=== PATIENT | female | born 1970 | race Caucasian/White ===

== ENCOUNTER 2019-08-06 15:47 | Outpatient (CLI) | payer SELFPAY ==
--- NOTE | 2020-04-15 | USCV_ITS ---
Yessica Salcedo Age: 49 Gender: F : 1970 Exam Date: 04/15/2020 13:03 Ordering Phys: Jeremy Pizano MD ([email or web address]) Technologist: Mario Campos Exam Location: [facility] [place] Indication: HISTORY: Lower extremity swelling. PROCEDURES: Venous duplex imaging was performed in only the right lower extremity. The following venous structures were evaluated: common femoral vein, profunda vein, proximal portion of the greater saphenous vein, superficial femoral vein, and the popliteal vein. In addition, the posterior tibial and peroneal trunk were evaluated. Serial compression, augmentation maneuvers, and spectral Doppler flow evaluation were performed. CONCLUSIONS No evidence of DVT in the above-mentioned identifiable veins. Dr. Yoana Godfrey MD (Electronically Signed) Final Date: 15 April 2020 13:13 S
--- NOTE | 2020-04-15 | USCV_ITS ---
Yessica Salcedo Age: 49 Gender: F : 1970 Exam Date: 04/15/2020 13:05 Ordering Phys: Jeremy Pizano MD ([email or web address]) Technologist: Mario Campos Exam Location: [facility] [place] Indication: Risk Factors: Previous Vascular Surgery: Right Brachial BP: / Left Brachial BP: / Right Left Velocity (cm/s) Spectral Plaque Velocity (cm/s) Spectral Plaque Syst/Diast Broadening Syst/Diast Broadening 105.80/52.90 Prox CCA / 77.20/ 36.40 Mid CCA / 97.00/ 55.10 Distal CCA / 88.20/ 28.70 Prox ICA / 84.90/ 43.55 Mid ICA / 125.15/62.30 Distal ICA / 97.00 ECA 1.02 ICA/CCA Vertebral 68.40/ 39.70 cm/s / cm/s Subclavian 65.10 CONCLUSIONS No prior study for comparison. Right ICA stenosis < 50%. Left ICA stenosis 50-69%. Dr. Yoana Godfrey MD (Electronically Signed) Final Date: 15 April 2020 13:13 S
== END 2019-08-06 15:48 | disposition home or self-care (01) ==
LOC: OPMS 15:49
PROVIDERS: Visit Provider Hospitalist
DX: Z76.89 Persons encountering health services in other specified circumstances (principal)

== ENCOUNTER 2019-08-10 08:18 | Outpatient (CLI) | payer SELFPAY ==
--- NOTE | 2019-08-09 | CT_ITS ---
WS: [id number] CT LUNG CANCER SCREENING DLP: 256 CLINICAL INFORMATION SCREENING VISIT: Baseline COMPARISON: None available. FINDINGS Diagnostic quality: Satisfactory Comments: None. Lung Nodules: None. Lungs: Mass seen in the right lower lobe Heart: Normal size Other findings: None. LUNG-RADS: 2-Benign Appearance or Behavior OTHER FINDINGS (S MODIFIER): Mass right lower lobe
--- NOTE | 2019-08-09 | CT_ITS ---
WS: [id number] CT LUNG CANCER SCREENING DLP: 250 CLINICAL INFORMATION SCREENING VISIT: Baseline COMPARISON: None available. FINDINGS Diagnostic quality: Satisfactory Comments: None. Lung Nodules: None. Lungs: No abnormality. Heart: Normal size. Other findings: None. LUNG-RADS: 1-Negative OTHER FINDINGS (S MODIFIER): None.
== END 2019-08-10 08:19 | disposition home or self-care (01) ==
LOC: RAD 08:21
PROVIDERS: Visit Provider Hospitalist
DX: Z12.2 Encounter for screening for malignant neoplasm of respiratory organs (principal)
CPT/HCPCS: 76536; 76700; 76770; 76775; 76805; 76815; 76816; 76817; 76819; 76820; 76830; 76856; 76857; 76870; G0297

== ENCOUNTER → 2020-07-31 08:40 | Inpatient (IN) | payer MEDICAID, SELFPAY ==
--- NOTE | 2020-08-06 15:17 | P.PN_ITS ---
NPU Therapy Progress Note Therapy Progress Note: Date: 08/06/20 Time In: 12:15 Time Out: 12:30 Symptoms Reported: Testing Mood: Testing asldk;fja;lskjf;alskdjf;alskjdfl;ajkdf;laksjdfl;akjsd;flkjas;l dfkj;alksdjfl;akdsjf;lakjfdl;ajkfdl;kjadl;fkja;ldkfj;alksjdf;lakjsdfl;alex;lkj ;lakjsd;kfja;ls fa;kdjfl;akjdf ja;ldkfjlakjdf as;ldkfjal;ksdf as;dlkfj;alksdfja sldfj;lalskdjf Progress Note: TEst Intervention: Test Reported Goals Before Discharge: test
--- NOTE | 2020-08-06 15:20 | PM.NPTHER ---
NPU Therapy Progress Note Therapy Progress Note Date: 08/06/20 Time In: 12:00 Time Out: 12:15 Symptoms Reported: Testing Mood: Testing Progress Note: Testing Intervention: Testing Reported Goals Before Discharge: Testing
--- NOTE | 2021-08-11 | XR_ITS ---
CHEST XRAY FINDINGS: IMPRESSION: MTDD
== END | disposition home or self-care (01) | DRG 192 ==
LOC: MS 2A 08-07 08:40
PROVIDERS: Admitting Provider Hospitalist; PCP Family Medicine; Visit Provider Hospitalist
DX: J44.9 Chronic obstructive pulmonary disease, unspecified (principal)

== ENCOUNTER → 2021-03-02 15:04 | Outpatient (BNVA) | payer MEDICARE, SELFPAY ==
--- NOTE | 2021-04-02 11:27 | PM.HP ---
Providers/Chief Complaint Primary Care Provider: Sandhya Oneil DO Chief Complaint: AMB.HEADLI History of Present Illness Yessica Salcedo is a 50 year old female who presents to the hospital for college working Medications/Allergies Home Medications Medication Instructions Recorded Confirmed Last Taken Type rosuvastatin [Crestor] 5 mg PO DAILY #1 tab 05/26/20 01/06/21 Unknown Rx fluticasone 250 mcg-salmeterol 50 1 inh INHALATION Q12H #60 ea 05/29/20 01/06/21 Unknown Rx mcg/dose blistr powdr for inhalation gabapentin 800 mg tablet 800 mg PO DAILY #1 tab 06/04/20 01/06/21 Unknown Rx multivitamin 1 tab PO DAILY #1 tab 06/04/20 01/06/21 Unknown Rx tramadol 50 mg tablet 50 mg PO Q8H PRN #30 tab 06/17/20 Unknown Rx hydrocodone bitartrate 10 mg 10 mg PO Q12H PRN 6 Days #12 each 10/20/20 01/06/21 Unknown Rx capsule, oral only, extended rel 12 hr hydrocodone 7.5 mg-acetaminophen 1 tab PO BID PRN 6 Days #10 tab 11/17/20 01/06/21 Unknown Rx 300 mg tablet hydrocodone 5 mg-acetaminophen 325 1 tab PO Q4H PRN 10 Days #30 tab 12/01/20 01/06/21 Unknown Rx mg tablet hydrocodone 5 mg-acetaminophen 325 1 tab PO DAILY 7 Days #1 tab 02/24/21 Unknown Rx mg tablet hydrocodone 5 mg-acetaminophen 325 1 tab PO DAILY 7 Days #7 tab 02/24/21 Unknown Rx mg tablet Allergies Allergy/AdvReac Type Severity Reaction Status Date / Time No Known Allergies Allergy Verified 03/04/21 15:55 PFSH Acute PFSH: Medical History Asthma Family History Father Family history of premature coronary artery disease Social History service: Yes Coding Level of Care Code Acute Developer Automatic for Felicita Roldan
== END ==
PROVIDERS: PCP Family Medicine; Visit Provider Family Medicine
DX: I26.99 Other pulmonary embolism without acute cor pulmonale (principal)
CPT/HCPCS: 85610

== ENCOUNTER → 2021-11-12 16:06 | Outpatient (BNVA) | payer MEDICARE, MEDICAID, SELFPAY | DX: I48.91 Unspecified atrial fibrillation (principal) | CPT/HCPCS: 87400 ==

== ENCOUNTER → 2021-11-17 13:48 | Outpatient (BNVA) | payer MEDICARE, MEDICAID, SELFPAY | PROVIDERS: Visit Provider Urology | DX: Z53.8 Procedure and treatment not carried out for other reasons (principal) | CPT/HCPCS: 81003 ==

== ENCOUNTER 2021-11-19 15:49 | Oncology outpatient (recurring) (ONCR) | payer MEDICARE, MEDICAID, SELFPAY ==
--- NOTE | 2021-12-09 12:05 | PM.HP ---
Providers/Chief Complaint Primary Care Provider: [facility] Chief Complaint: testing only History of Present Illness Yessica Salcedo is a 51 year old female Review of Systems General: Reports: 10 or more systems reviewed and unremarkable except in HPI and below and ROS unobtainable due to endotracheal tube Medications/Allergies Home Medications Medication Instructions Recorded Confirmed Last Taken Type rosuvastatin 5 mg tablet (Crestor) 5 mg PO DAILY #1 tab 05/26/20 11/25/21 Unknown Rx fluticasone 250 mcg-salmeterol 50 1 inh INHALATION Q12H #60 ea 05/29/20 11/25/21 Unknown Rx mcg/dose blistr powdr for inhalation (Advair Diskus) gabapentin 800 mg tablet 800 mg PO DAILY #1 tab 06/04/20 11/25/21 Unknown Rx multivitamin 1 tab PO DAILY #1 tab 06/04/20 11/25/21 Unknown Rx tramadol 50 mg tablet 50 mg PO Q8H PRN #30 tab 06/17/20 11/25/21 Unknown Rx hydrocodone 7.5 mg-acetaminophen 1 tab PO BID PRN 6 Days #10 tab 11/17/20 11/25/21 Unknown Rx 300 mg tablet hydrocodone 5 mg-acetaminophen 325 1 tab PO Q4H PRN 10 Days #30 tab 12/01/20 11/25/21 Unknown Rx mg tablet hydrocodone 5 mg-acetaminophen 325 1 tab PO DAILY 7 Days #1 tab 02/24/21 11/25/21 Unknown Rx mg tablet hydrocodone 5 mg-acetaminophen 325 1 tab PO DAILY 7 Days #7 tab 02/24/21 11/25/21 Unknown Rx mg tablet lisinopril 5 mg tablet 5 mg PO DAILY #1 tab 05/21/21 11/25/21 Unknown Rx lisinopril 5 mg tablet 5 mg PO DAILY #7 tab 05/21/21 11/25/21 Unknown Rx clonazepam 0.5 mg tablet 0.25 mg PO DAILY #1 tab 07/14/21 11/25/21 Unknown Rx ibuprofen 200 mg capsule 400 mg PO Q8H #14 cap 08/31/21 11/25/21 Unknown Rx hydrocodone bitartrate 10 mg 10 mg PO Q12H PRN 6 Days #12 each 10/22/21 11/25/21 Unknown Rx capsule, oral only, extended rel 12 hr oxycodone 5 mg/5 mL oral solution 5 mg (5 mL) PO .COMPLEX PRN 14 11/16/21 11/25/21 Unknown Rx Days #5 ml oxycodone 5 mg/5 mL oral solution 5 mg (5 mL) PO Q6H PRN 17 Days #5 11/16/21 11/25/21 Unknown Rx ml lisinopril 10 mg tablet 10 mg PO DAILY #30 tab 12/08/21 12/08/21 Unknown Rx Allergies Allergy/AdvReac Type Severity Reaction Status Date / Time No Known Allergies Allergy Verified 12/08/21 15:44 PFSH Acute PFSH: Medical History Asthma Family History (Updated 12/08/21 @ 16:11 by Juliet Whitten LPN) Father Family history of premature coronary artery disease Father No problems noted. Social History (Updated 07/16/21 @ 23:27 by Barbie Billings MD) Last alcohol use date: 07/16/21 Last alcohol use time: 23:26 Other details last alcohol use: testing Last substance use date: 07/14/21 Last substance use time: 08:00 Other details last substance use: help service: Yes Attestations Medical Necessity Statement*: ddd Coding Level of Care Code Acute Ladle Car Operator for Felicita Roldan
== END 2021-12-15 23:59 | disposition home or self-care (01) ==
PROVIDERS: Visit Provider Internal Medicine Hematology & Oncology
DX: Z53.9 Procedure and treatment not carried out, unspecified reason (principal)

== ENCOUNTER 2022-02-04 12:54 | Oncology outpatient (recurring) (ONCR) | payer MEDICARE, MEDICAID, SELFPAY ==
--- NOTE | 2022-01-20 11:31 | PM.DCS ---
Discharge Providers Date of Discharge: January 20, 2022 Attending Provider at Discharge: Christie Horton MD Primary Care Provider: [facility] Diagnoses at Discharge Discharge Diagnosis (1) A-fib: Status: Acute Reason for Visit Reason for Visit: testing only Discharge Data Studies Completed and Pending Laboratory Results Urine Color Cancelled 01/12/22 12:02 Urine Appearance Cancelled 01/12/22 12:02 Urine pH Cancelled 01/12/22 12:02 Ur Specific [place] Cancelled 01/12/22 12:02 Urine Protein Cancelled 01/12/22 12:02 Urine Glucose (UA) Cancelled 01/12/22 12:02 Urine Ketones Cancelled 01/12/22 12:02 Urine Blood Cancelled 01/12/22 12:02 Urine Nitrate Cancelled 01/12/22 12:02 Urine Bilirubin Cancelled 01/12/22 12:02 Prot Sulfosalicylic Acd Cancelled 01/12/22 12:02 Urine Urobilinogen Cancelled 01/12/22 12:02 Ur Leukocyte Esterase Cancelled 01/12/22 12:02 Urine RBC Cancelled 01/12/22 12:02 Urine WBC Cancelled 01/12/22 12:02 Ur Squamous Epith Cells Cancelled 01/12/22 12:02 Ur Transition Epith Cell Cancelled 01/12/22 12:02 Ur Renal Epithelial Cell Cancelled 01/12/22 12:02 Calcium Oxalate Crystal Cancelled 01/12/22 12:02 Uric Acid Crystals Cancelled 01/12/22 12:02 Triple Phos Crystals Cancelled 01/12/22 12:02 Other Crystals Cancelled 01/12/22 12:02 Amorphous Sediment Cancelled 01/12/22 12:02 Urine Bacteria Cancelled 01/12/22 12:02 Hyaline Casts Cancelled 01/12/22 12:02 Fine Granular Casts Cancelled 01/12/22 12:02 Coarse Granular Casts Cancelled 01/12/22 12:02 RBC Casts Cancelled 01/12/22 12:02 Other Casts Cancelled 01/12/22 12:02 Urine Mucus Cancelled 01/12/22 12:02 Urine Trichomonas Cancelled 01/12/22 12:02 Urine Yeast Cancelled 01/12/22 12:02 Urine Sperm Cancelled 01/12/22 12:02 Ur Oval Fat Bodies Cancelled 01/12/22 12:02 Discharge Plan Discharge Prescriptions: No Action lisinopril 5 mg tablet 5 mg PO DAILY Qty: 1 0RF lisinopril 10 mg tablet 10 mg PO DAILY Qty: 30 0RF fluticasone propion-salmeterol [Advair Diskus] 250-50 mcg/dose blister with device 1 inh INHALATION Q12H Qty: 60 0RF gabapentin 800 mg tablet 800 mg PO DAILY Qty: 1 0RF multivitamin Tablet 1 tab PO DAILY Qty: 1 0RF tramadol 50 mg tablet 50 mg PO Q8H PRN (Reason: pain) Qty: 30 0RF Rx Instructions: testing Rx do not fill hydrocodone-acetaminophen 7.5-300 mg tablet 1 tab PO BID PRN (Reason: pain) 6 Days Qty: 10 0RF Rx Instructions: Please do no fill this is a test script hydrocodone-acetaminophen 5-325 mg tablet 1 tab PO Q4H PRN (Reason: pain) 10 Days Qty: 30 0RF Rx Instructions: do not fill this medication is a test hydrocodone-acetaminophen 5-325 mg tablet 1 tab PO DAILY 7 Days Qty: 1 0RF Rx Instructions: test script hydrocodone-acetaminophen 5-325 mg tablet 1 tab PO DAILY 7 Days Qty: 7 0RF Rx Instructions: test patient lisinopril 5 mg tablet 5 mg PO DAILY Qty: 7 0RF ibuprofen 200 mg capsule 400 mg PO Q8H Qty: 14 0RF Rx Instructions: Take with food oxycodone 5 mg/5 mL solution 5 mg PO Q6H PRN (Reason: pain) 17 Days Qty: 5 0RF Rx Instructions: Test patient ... do not fill oxycodone 5 mg/5 mL solution 5 mg PO .COMPLEX PRN (Reason: pain) 14 Days Qty: 5 0RF Rx Instructions: 5 mg PO Q4-6 hrs PRN; clonazepam 0.5 mg tablet 0.25 mg PO DAILY Qty: 1 0RF Rx Instructions: test script do not fill Crestor 5 mg tablet 5 mg PO DAILY Qty: 1 0RF hydrocodone bitartrate 10 mg capsule, oral only, ER 12hr 10 mg PO Q12H PRN (Reason: pain) 6 Days Qty: 12 0RF Rx Instructions: DO NOT FILL THIS IS A TEST SCRIPTS Coding Level of Care Code Acute Chg FW DC note Diagnoses A-fib I48.91
--- NOTE | 2022-01-20 15:56 | PM.HP ---
Providers/Chief Complaint Primary Care Provider: [facility] Chief Complaint: testing only History of Present Illness Yessica Salcedo is a 51 year old female Medications/Allergies Home Medications Medication Instructions Recorded Confirmed Last Taken Type rosuvastatin 5 mg tablet (Crestor) 5 mg PO DAILY #1 tab 05/26/20 11/25/21 Unknown Rx fluticasone 250 mcg-salmeterol 50 1 inh INHALATION Q12H #60 ea 05/29/20 11/25/21 Unknown Rx mcg/dose blistr powdr for inhalation (Advair Diskus) gabapentin 800 mg tablet 800 mg PO DAILY #1 tab 06/04/20 11/25/21 Unknown Rx multivitamin 1 tab PO DAILY #1 tab 06/04/20 11/25/21 Unknown Rx tramadol 50 mg tablet 50 mg PO Q8H PRN #30 tab 06/17/20 11/25/21 Unknown Rx hydrocodone 7.5 mg-acetaminophen 1 tab PO BID PRN 6 Days #10 tab 11/17/20 11/25/21 Unknown Rx 300 mg tablet hydrocodone 5 mg-acetaminophen 325 1 tab PO Q4H PRN 10 Days #30 tab 12/01/20 11/25/21 Unknown Rx mg tablet hydrocodone 5 mg-acetaminophen 325 1 tab PO DAILY 7 Days #1 tab 02/24/21 11/25/21 Unknown Rx mg tablet hydrocodone 5 mg-acetaminophen 325 1 tab PO DAILY 7 Days #7 tab 02/24/21 11/25/21 Unknown Rx mg tablet lisinopril 5 mg tablet 5 mg PO DAILY #1 tab 05/21/21 11/25/21 Unknown Rx lisinopril 5 mg tablet 5 mg PO DAILY #7 tab 05/21/21 11/25/21 Unknown Rx clonazepam 0.5 mg tablet 0.25 mg PO DAILY #1 tab 07/14/21 11/25/21 Unknown Rx ibuprofen 200 mg capsule 400 mg PO Q8H #14 cap 08/31/21 11/25/21 Unknown Rx hydrocodone bitartrate 10 mg 10 mg PO Q12H PRN 6 Days #12 each 10/22/21 11/25/21 Unknown Rx capsule, oral only, extended rel 12 hr oxycodone 5 mg/5 mL oral solution 5 mg (5 mL) PO .COMPLEX PRN 14 11/16/21 11/25/21 Unknown Rx Days #5 ml oxycodone 5 mg/5 mL oral solution 5 mg (5 mL) PO Q6H PRN 17 Days #5 11/16/21 11/25/21 Unknown Rx ml lisinopril 10 mg tablet 10 mg PO DAILY #30 tab 12/08/21 12/08/21 Unknown Rx Allergies Allergy/AdvReac Type Severity Reaction Status Date / Time No Known Allergies Allergy Verified 12/08/21 15:44 PFSH Acute PFSH: Medical History Asthma Family History Father Family history of premature coronary artery disease Father No problems noted. Social History Last alcohol use date: 07/16/21 Last alcohol use time: 23:26 Other details last alcohol use: testing Last substance use date: 07/14/21 Last substance use time: 08:00 Other details last substance use: help service: Yes Other PFSH information: PFSH not updated/unobtainable from patient: due to endotracheal tube, due to medical condition, due to mental status, due to other reason and reviewed with family/caregiver/marine engine machinist Physical Exam Extremity: RIGHT UPPER EXTREMITY: Yes shoulder joint Right shoulder: Yes Right shoulder joint special tests Right shoulder special tests: Empty can test: Positive Coding Level of Care Code Acute Vehicle Care Specialist for Felicita Roldan
--- NOTE | 2022-01-20 16:51 | W.ED.ABDPA2 ---
PFSH ED PFSH: Medical History Asthma Family History Father Family history of premature coronary artery disease Father No problems noted. Social History Last alcohol use date: 07/16/21 Last alcohol use time: 23:26 Other details last alcohol use: testing Last substance use date: 07/14/21 Last substance use time: 08:00 Other details last substance use: help service: Yes MDM - Abdominal Pain Lab Data Labs/Radiology: Laboratory Results Urine Color Cancelled 01/12/22 12:02 Urine Appearance Cancelled 01/12/22 12:02 Urine pH Cancelled 01/12/22 12:02 Ur Specific [place] Cancelled 01/12/22 12:02 Urine Protein Cancelled 01/12/22 12:02 Urine Glucose (UA) Cancelled 01/12/22 12:02 Urine Ketones Cancelled 01/12/22 12:02 Urine Blood Cancelled 01/12/22 12:02 Urine Nitrate Cancelled 01/12/22 12:02 Urine Bilirubin Cancelled 01/12/22 12:02 Prot Sulfosalicylic Acd Cancelled 01/12/22 12:02 Urine Urobilinogen Cancelled 01/12/22 12:02 Ur Leukocyte Esterase Cancelled 01/12/22 12:02 Urine RBC Cancelled 01/12/22 12:02 Urine WBC Cancelled 01/12/22 12:02 Ur Squamous Epith Cells Cancelled 01/12/22 12:02 Ur Transition Epith Cell Cancelled 01/12/22 12:02 Ur Renal Epithelial Cell Cancelled 01/12/22 12:02 Calcium Oxalate Crystal Cancelled 01/12/22 12:02 Uric Acid Crystals Cancelled 01/12/22 12:02 Triple Phos Crystals Cancelled 01/12/22 12:02 Other Crystals Cancelled 01/12/22 12:02 Amorphous Sediment Cancelled 01/12/22 12:02 Urine Bacteria Cancelled 01/12/22 12:02 Hyaline Casts Cancelled 01/12/22 12:02 Fine Granular Casts Cancelled 01/12/22 12:02 Coarse Granular Casts Cancelled 01/12/22 12:02 RBC Casts Cancelled 01/12/22 12:02 Other Casts Cancelled 01/12/22 12:02 Urine Mucus Cancelled 01/12/22 12:02 Urine Trichomonas Cancelled 01/12/22 12:02 Urine Yeast Cancelled 01/12/22 12:02 Urine Sperm Cancelled 01/12/22 12:02 Ur Oval Fat Bodies Cancelled 01/12/22 12:02 Discharge Plan Discharge Prescriptions: No Action lisinopril 5 mg tablet 5 mg PO DAILY Qty: 1 0RF lisinopril 10 mg tablet 10 mg PO DAILY Qty: 30 0RF fluticasone propion-salmeterol [Advair Diskus] 250-50 mcg/dose blister with device 1 inh INHALATION Q12H Qty: 60 0RF gabapentin 800 mg tablet 800 mg PO DAILY Qty: 1 0RF multivitamin Tablet 1 tab PO DAILY Qty: 1 0RF tramadol 50 mg tablet 50 mg PO Q8H PRN (Reason: pain) Qty: 30 0RF Rx Instructions: testing Rx do not fill hydrocodone-acetaminophen 7.5-300 mg tablet 1 tab PO BID PRN (Reason: pain) 6 Days Qty: 10 0RF Rx Instructions: Please do no fill this is a test script hydrocodone-acetaminophen 5-325 mg tablet 1 tab PO Q4H PRN (Reason: pain) 10 Days Qty: 30 0RF Rx Instructions: do not fill this medication is a test hydrocodone-acetaminophen 5-325 mg tablet 1 tab PO DAILY 7 Days Qty: 1 0RF Rx Instructions: test script hydrocodone-acetaminophen 5-325 mg tablet 1 tab PO DAILY 7 Days Qty: 7 0RF Rx Instructions: test patient lisinopril 5 mg tablet 5 mg PO DAILY Qty: 7 0RF ibuprofen 200 mg capsule 400 mg PO Q8H Qty: 14 0RF Rx Instructions: Take with food oxycodone 5 mg/5 mL solution 5 mg PO Q6H PRN (Reason: pain) 17 Days Qty: 5 0RF Rx Instructions: Test patient ... do not fill oxycodone 5 mg/5 mL solution 5 mg PO .COMPLEX PRN (Reason: pain) 14 Days Qty: 5 0RF Rx Instructions: 5 mg PO Q4-6 hrs PRN; clonazepam 0.5 mg tablet 0.25 mg PO DAILY Qty: 1 0RF Rx Instructions: test script do not fill Crestor 5 mg tablet 5 mg PO DAILY Qty: 1 0RF hydrocodone bitartrate 10 mg capsule, oral only, ER 12hr 10 mg PO Q12H PRN (Reason: pain) 6 Days Qty: 12 0RF Rx Instructions: DO NOT FILL THIS IS A TEST SCRIPTS Referrals: [facility], [Primary Care Provider] - Coding Level of Care Code ED Staff Developer for Felicita Roldan
--- NOTE | 2022-01-20 17:41 | PM.GBL ---
Discharge Providers Date of Discharge: January 20, 2022 Attending Provider at Discharge: Christie Horton MD Primary Care Provider: [facility] Physical Exam Const: COMMON NORMALS: patient oriented x3 and alert HENMT: COMMON NORMALS: normocephalic, atraumatic and moist oral mucous membranes HEAD & SCALP: normocephalic and atraumatic Eye: COMMON NORMALS: Equal, round and reactive pupils present, EOMs intact bilaterally and no scleral icterus PUPIL: Yes Equal, round and reactive pupils present Neck/C-Spine: COMMON NORMALS: supple Lymph: LYMPHATIC: no lymphadenopathy noted Resp: COMMON NORMALS: normal respiratory effort, No use of accessory muscles and clear to auscultation bilaterally AUSCULTATION: clear to auscultation bilaterally Cardio: COMMON NORMALS: regular rate, regular rhythm, No gallops present (Cardio), No murmurs present (Cardio) and No rub (Cardio) RATE: regular rate RHYTHM: regular rhythm GI: COMMON NORMALS: Soft to palpation, non-tender and no masses AUSCULTATION: Yes normoactive bowel sounds PALPATION: Yes Soft to palpation : BLADDER/KIDNEY EXAM: Yes CVA tenderness Back/Pelvis: GENERAL BACK: Yes CVA tenderness Extremity: COMMON NORMALS: capillary refill normal, no joint enlargement, no clubbing, cyanosis or edema and no calf tenderness Neuro: COMMON NORMALS: patient oriented x3, moves all extremities and no sensory deficits noted SENSORIUM/ORIENTATION: Yes alert Psych: COMMON NORMALS: Normal thought process present and cooperative THOUGHT PROCESS: Normal thought process present Skin: COMMON NORMALS: no rashes or lesions noted and no mottling GENERAL SKIN EXAM: no rashes or lesions noted and dry skin Discharge Plan Discharge Prescriptions: No Action lisinopril 5 mg tablet 5 mg PO DAILY Qty: 1 0RF lisinopril 10 mg tablet 10 mg PO DAILY Qty: 30 0RF fluticasone propion-salmeterol [Advair Diskus] 250-50 mcg/dose blister with device 1 inh INHALATION Q12H Qty: 60 0RF gabapentin 800 mg tablet 800 mg PO DAILY Qty: 1 0RF multivitamin Tablet 1 tab PO DAILY Qty: 1 0RF tramadol 50 mg tablet 50 mg PO Q8H PRN (Reason: pain) Qty: 30 0RF Rx Instructions: testing Rx do not fill hydrocodone-acetaminophen 7.5-300 mg tablet 1 tab PO BID PRN (Reason: pain) 6 Days Qty: 10 0RF Rx Instructions: Please do no fill this is a test script hydrocodone-acetaminophen 5-325 mg tablet 1 tab PO Q4H PRN (Reason: pain) 10 Days Qty: 30 0RF Rx Instructions: do not fill this medication is a test hydrocodone-acetaminophen 5-325 mg tablet 1 tab PO DAILY 7 Days Qty: 1 0RF Rx Instructions: test script hydrocodone-acetaminophen 5-325 mg tablet 1 tab PO DAILY 7 Days Qty: 7 0RF Rx Instructions: test patient lisinopril 5 mg tablet 5 mg PO DAILY Qty: 7 0RF ibuprofen 200 mg capsule 400 mg PO Q8H Qty: 14 0RF Rx Instructions: Take with food oxycodone 5 mg/5 mL solution 5 mg PO Q6H PRN (Reason: pain) 17 Days Qty: 5 0RF Rx Instructions: Test patient ... do not fill oxycodone 5 mg/5 mL solution 5 mg PO .COMPLEX PRN (Reason: pain) 14 Days Qty: 5 0RF Rx Instructions: 5 mg PO Q4-6 hrs PRN; clonazepam 0.5 mg tablet 0.25 mg PO DAILY Qty: 1 0RF Rx Instructions: test script do not fill Crestor 5 mg tablet 5 mg PO DAILY Qty: 1 0RF hydrocodone bitartrate 10 mg capsule, oral only, ER 12hr 10 mg PO Q12H PRN (Reason: pain) 6 Days Qty: 12 0RF Rx Instructions: DO NOT FILL THIS IS A TEST SCRIPTS Referrals: [facility], [Primary Care Provider] -
--- NOTE | 2022-01-21 10:25 | W.PM.OPSUD ---
Surgery/Procedure H&P Update DATE OF PROCEDURE: January 21, 2022
--- NOTE | 2022-02-09 10:43 | PM.DCS ---
Discharge Providers Date of Discharge: February 09, 2022 Attending Provider at Discharge: Rogerio Flores MD Primary Care Provider: [facility] Diagnoses at Discharge Discharge Diagnosis (1) A-fib: Status: Acute Reason for Visit Reason for Visit: hypertension Discharge Data Studies Completed and Pending Laboratory Results Urine Color Cancelled 01/12/22 12:02 Urine Appearance Cancelled 01/12/22 12:02 Urine pH Cancelled 01/12/22 12:02 Ur Specific [facility] Cancelled 01/12/22 12:02 Urine Protein Cancelled 01/12/22 12:02 Urine Glucose (UA) Cancelled 01/12/22 12:02 Urine Ketones Cancelled 01/12/22 12:02 Urine Blood Cancelled 01/12/22 12:02 Urine Nitrate Cancelled 01/12/22 12:02 Urine Bilirubin Cancelled 01/12/22 12:02 Prot Sulfosalicylic Acd Cancelled 01/12/22 12:02 Urine Urobilinogen Cancelled 01/12/22 12:02 Ur Leukocyte Esterase Cancelled 01/12/22 12:02 Urine RBC Cancelled 01/12/22 12:02 Urine WBC Cancelled 01/12/22 12:02 Ur Squamous Epith Cells Cancelled 01/12/22 12:02 Ur Transition Epith Cell Cancelled 01/12/22 12:02 Ur Renal Epithelial Cell Cancelled 01/12/22 12:02 Calcium Oxalate Crystal Cancelled 01/12/22 12:02 Uric Acid Crystals Cancelled 01/12/22 12:02 Triple Phos Crystals Cancelled 01/12/22 12:02 Other Crystals Cancelled 01/12/22 12:02 Amorphous Sediment Cancelled 01/12/22 12:02 Urine Bacteria Cancelled 01/12/22 12:02 Hyaline Casts Cancelled 01/12/22 12:02 Fine Granular Casts Cancelled 01/12/22 12:02 Coarse Granular Casts Cancelled 01/12/22 12:02 RBC Casts Cancelled 01/12/22 12:02 Other Casts Cancelled 01/12/22 12:02 Urine Mucus Cancelled 01/12/22 12:02 Urine Trichomonas Cancelled 01/12/22 12:02 Urine Yeast Cancelled 01/12/22 12:02 Urine Sperm Cancelled 01/12/22 12:02 Ur Oval Fat Bodies Cancelled 01/12/22 12:02 Discharge Plan Discharge Prescriptions: No Action lisinopril 5 mg tablet 5 mg PO DAILY Qty: 1 0RF lisinopril 10 mg tablet 10 mg PO DAILY Qty: 30 0RF fluticasone propion-salmeterol [Advair Diskus] 250-50 mcg/dose blister with device 1 inh INHALATION Q12H Qty: 60 0RF gabapentin 800 mg tablet 800 mg PO DAILY Qty: 1 0RF multivitamin Tablet 1 tab PO DAILY Qty: 1 0RF tramadol 50 mg tablet 50 mg PO Q8H PRN (Reason: pain) Qty: 30 0RF Rx Instructions: testing Rx do not fill hydrocodone-acetaminophen 7.5-300 mg tablet 1 tab PO BID PRN (Reason: pain) 6 Days Qty: 10 0RF Rx Instructions: Please do no fill this is a test script hydrocodone-acetaminophen 5-325 mg tablet 1 tab PO Q4H PRN (Reason: pain) 10 Days Qty: 30 0RF Rx Instructions: do not fill this medication is a test hydrocodone-acetaminophen 5-325 mg tablet 1 tab PO DAILY 7 Days Qty: 1 0RF Rx Instructions: test script hydrocodone-acetaminophen 5-325 mg tablet 1 tab PO DAILY 7 Days Qty: 7 0RF Rx Instructions: test patient lisinopril 5 mg tablet 5 mg PO DAILY Qty: 7 0RF ibuprofen 200 mg capsule 400 mg PO Q8H Qty: 14 0RF Rx Instructions: Take with food oxycodone 5 mg/5 mL solution 5 mg PO Q6H PRN (Reason: pain) 17 Days Qty: 5 0RF Rx Instructions: Test patient ... do not fill oxycodone 5 mg/5 mL solution 5 mg PO .COMPLEX PRN (Reason: pain) 14 Days Qty: 5 0RF Rx Instructions: 5 mg PO Q4-6 hrs PRN; ibuprofen 200 mg capsule 400 mg PO Q8H Qty: 14 0RF Rx Instructions: Take with food clonazepam 0.5 mg tablet 0.25 mg PO DAILY Qty: 1 0RF Rx Instructions: test script do not fill Crestor 5 mg tablet 5 mg PO DAILY Qty: 1 0RF hydrocodone bitartrate 10 mg capsule, oral only, ER 12hr 10 mg PO Q12H PRN (Reason: pain) 6 Days Qty: 12 0RF Rx Instructions: DO NOT FILL THIS IS A TEST SCRIPTS Referrals: [facility], [Primary Care Provider] - Coding Level of Care Code Acute Chg FW DC note Diagnoses A-fib I48.91
--- NOTE | 2022-02-10 14:08 | PM.HP ---
Providers/Chief Complaint Primary Care Provider: [facility] Chief Complaint: hypertension History of Present Illness Yessica Salcedo is a 51 year old female Medications/Allergies Home Medications Medication Instructions Recorded Confirmed Last Taken Type rosuvastatin 5 mg tablet (Crestor) 5 mg PO DAILY #1 tab 05/26/20 02/09/22 Unknown Rx fluticasone 250 mcg-salmeterol 50 1 inh inhalation Q12H #60 ea 05/29/20 02/10/22 2 Days Ago Rx mcg/dose blistr powdr for ~02/08/22 inhalation (Advair Diskus) gabapentin 800 mg tablet 800 mg PO DAILY #1 tab 06/04/20 02/09/22 2 Days Ago Rx ~02/08/22 multivitamin 1 tab PO DAILY #1 tab 06/04/20 02/09/22 Unknown Rx tramadol 50 mg tablet 50 mg PO Q8H PRN pain #30 tabs 06/17/20 02/09/22 Unknown Rx hydrocodone 7.5 mg-acetaminophen 1 tab PO BID PRN pain 6 days #10 11/17/20 02/09/22 Unknown Rx 300 mg tablet tabs hydrocodone 5 mg-acetaminophen 325 1 tab PO Q4H PRN pain 10 days #30 12/01/20 02/09/22 Unknown Rx mg tablet tabs hydrocodone 5 mg-acetaminophen 325 1 tab PO DAILY 7 days #1 tab 02/24/21 02/09/22 Unknown Rx mg tablet hydrocodone 5 mg-acetaminophen 325 1 tab PO DAILY 7 days #7 tabs 02/24/21 02/09/22 Unknown Rx mg tablet lisinopril 5 mg tablet 5 mg PO DAILY #1 tab 05/21/21 02/09/22 Unknown Rx lisinopril 5 mg tablet 5 mg PO DAILY #7 tabs 05/21/21 02/09/22 Unknown Rx clonazepam 0.5 mg tablet 0.25 mg PO DAILY #1 tab 07/14/21 02/09/22 2 Days Ago Rx ~02/08/22 ibuprofen 200 mg capsule 400 mg PO Q8H #14 caps 08/31/21 02/09/22 Unknown Rx hydrocodone bitartrate 10 mg 10 mg PO Q12H PRN pain 6 days #12 10/22/21 02/09/22 Unknown Rx capsule, oral only, extended rel ea 12 hr oxycodone 5 mg/5 mL oral solution 5 mg (5 mL) PO .COMPLEX PRN pain 11/16/21 02/09/22 Unknown Rx 14 days #5 mL oxycodone 5 mg/5 mL oral solution 5 mg (5 mL) PO Q6H PRN pain 17 11/16/21 02/09/22 Unknown Rx days #5 mL lisinopril 10 mg tablet 10 mg PO DAILY #30 tabs 12/08/21 02/09/22 Unknown Rx ibuprofen 200 mg capsule 400 mg PO Q8H #14 caps 01/25/22 02/09/22 Unknown Rx olopatadine 0.2 % eye drops 1 drp ophthalmic (eye) DAILY 02/10/22 02/10/22 1 Day Ago History (Pataday Once Daily Relief) ~02/09/22 Allergies Allergy/AdvReac Type Severity Reaction Status Date / Time lisinopril Allergy Verified 02/10/22 04:35 PFSH Acute PFSH: Medical History (Updated 02/10/22 @ 04:33 by Saji Encarnacion) Anemia affecting 10th Asthma Family History Father Family history of premature coronary artery disease Father No problems noted. Social History Last alcohol use date: 07/16/21 Last alcohol use time: 23:26 Other details last alcohol use: testing Last substance use date: 07/14/21 Last substance use time: 08:00 Other details last substance use: help service: Yes A&P Assessment and plan (1) A-fib: Status: Acute Coding Level of Care Code Acute Head Wood Grinder for Felicita Roldan Diagnoses A-fib I48.91
== END 2022-02-14 23:59 | disposition home or self-care (01) ==
PROVIDERS: Visit Provider Internal Medicine Medical Oncology
DX: Z53.9 Procedure and treatment not carried out, unspecified reason (principal)
CPT/HCPCS: 12345

== ENCOUNTER 2022-04-14 13:32 | Oncology outpatient (recurring) (ONCR) | payer MEDICARE, MEDICAID, SELFPAY ==
[2022-04-13 14:13] LABS: Add Urine Microscopic? NO; Charge for UA Resulting for Rev
[2022-04-13 14:18] LABS: Bilirubin Urine Negative (Negative); Blood Urine Negative (Negative); Glucose Urine UA Negative (Normal); Ketones Urine Negative (Negative); Leukocyte Esterase Urine Negative; Nitrate Urine Negative; Protein Urine Negative; Urine Appearance Turbid (CLEAR); Urine Color Yellow (Yellow); Urobilinogen Urine 0.2 mg/dL (Negative)
--- NOTE | 2022-04-19 17:12 | W.ED.ABDPA2 ---
PFSH ED PFSH: Medical History (Updated 04/15/22 @ 13:45 by Barbie Billings MD) Alzheimer's disease with early onset Anemia affecting 10th Asthma Asymptomatic microscopic hematuria STANISLAW (iron deficiency anemia) Migraine Surgical History History of right hip replacement Hx of tonsillectomy Family History Father Family history of premature coronary artery disease Father No problems noted. Social History (Updated 04/07/22 @ 10:03 by Eduar Baker MD) Smoking and tobacco status: current every day smoker cigarettes Packs smoked per day: 2 Years cigarettes smoked: 31 [ Other cigarette details: 62PY] Quit status (tobacco): has tried quititng Second hand smoke exposure: Yes Smoking risk assessment/counseling performed?: Yes Tobacco counseling given: provider counseling and counseling >3 minutes Alcohol intake: current Alcohol intake frequency: 0-2 Drinks per Day Alcohol type: wine and hard liquor Desire information about alcohol rehabilitation?: No Last alcohol use date: 07/16/21 Last alcohol use time: 23:26 Other details last alcohol use: testing Last substance use date: 07/14/21 Last substance use time: 08:00 Other details last substance use: help service: Yes MDM - Abdominal Pain Lab Data : 03/05/22 08:44 03/05/22 08:44 Labs/Radiology: Laboratory Results Hgb Cancelled 03/05/22 08:44 Hct Cancelled 03/05/22 08:44 APTT Cancelled 03/01/22 09:18 Specimen Type Cancelled 04/08/22 03:46 Sample Site Cancelled 04/08/22 03:46 O2 Sat Pulse Oximetry Cancelled 04/08/22 03:46 ABG pH Cancelled 04/08/22 03:46 ABG pCO2 Cancelled 04/08/22 03:46 ABG pO2 Cancelled 04/08/22 03:46 ABG HCO3 Cancelled 04/08/22 03:46 ABG O2 Saturation Cancelled 03/17/22 15:31 ABG Base Excess Cancelled 04/08/22 03:46 Donny Test Cancelled 04/08/22 03:46 A-a O2 Gradient Cancelled 03/17/22 15:31 Hematocrit Cancelled 04/08/22 03:46 Hgb O2 Saturation Cancelled 03/17/22 15:31 Carboxyhemoglobin Cancelled 03/17/22 15:31 Methemoglobin Cancelled 03/17/22 15:31 Total Hemoglobin Cancelled 03/17/22 15:31 Sodium Cancelled 03/17/22 15:31 Potassium Cancelled 03/17/22 15:31 Glucose Cancelled 03/17/22 15:31 Ionized Calcium Cancelled 03/17/22 15:31 Respiration Rate Cancelled 04/08/22 03:46 O2 Delivery Device Cancelled 04/08/22 03:46 O2 Liters/Min Cancelled 04/08/22 03:46 SIMV Cancelled 04/08/22 03:46 Vent Mode Cancelled 04/08/22 03:46 Mechanical Rate Cancelled 04/08/22 03:46 Spontaneous Rate Cancelled 04/08/22 03:46 FiO2 Cancelled 04/08/22 03:46 Tidal Volume Cancelled 04/08/22 03:46 PEEP Cancelled 04/08/22 03:46 Pressure Support Cancelled 04/08/22 03:46 Pressure Control Cancelled 04/08/22 03:46 CPAP Cancelled 04/08/22 03:46 Mode BiPAP Cancelled 04/08/22 03:46 Specimen Drawn By Cancelled 04/08/22 03:46 Polisher Balance Screwhead ID Cancelled 04/08/22 03:46 Crit Value Read Back Cancelled 04/08/22 03:46 Blood Gas Notified Time Cancelled 04/08/22 03:46 Potassium Cancelled 03/05/22 08:44 Lung ROS1 6q22 FISH Sp Cancelled 03/31/22 14:30 Urine Color Cancelled 04/13/22 15:23 Urine Appearance Cancelled 04/13/22 15:23 Urine pH Cancelled 04/13/22 15:23 Ur Specific [place] Cancelled 04/13/22 15:23 Urine Protein Cancelled 04/13/22 15:23 Urine Glucose (UA) Cancelled 04/13/22 15:23 Urine Ketones Cancelled 04/13/22 15:23 Urine Blood Cancelled 04/13/22 15:23 Urine Nitrate Cancelled 04/13/22 15:23 Urine Bilirubin Cancelled 04/13/22 15:23 Prot Sulfosalicylic Acd Cancelled 04/13/22 15:23 Urine Urobilinogen Cancelled 04/13/22 15:23 Ur Leukocyte Esterase Cancelled 04/13/22 15:23 Influenza Type A Ag Cancelled 04/06/22 09:26 Influenza Type B Ag Cancelled 04/06/22 09:26 Discharge Plan Discharge Patient Disposition: Home Condition: Good Prescriptions: No Action lisinopril 10 mg tablet 10 mg PO DAILY Qty: 30 0RF ibuprofen 800 mg tablet 800 mg PO Q8H PRN (Reason: pain) Qty: 10 0RF diazepam [Valium] 10 mg tablet 10 mg PO BID PRN (Reason: anxiety) Qty: 20 0RF Rx Instructions: Do Not Fill - Test Rx cholecalciferol (vitamin D3) 50 mcg (2,000 unit) tablet 50 mcg PO BID Pataday Once Daily Relief 0.2 % Drops 1 drp OPHTHALMIC (EYE) DAILY Patient Instructions: Allergies (GEN) Discharge Date/Time: 04/16/22 23:59 Coding Level of Care Code ED Metals[employer] Helper for Felicita Roldan
== END 2022-04-16 23:59 | disposition home or self-care (01) ==
PROVIDERS: PCP Family Medicine; Visit Provider Internal Medicine Medical Oncology
DX: Z53.9 Procedure and treatment not carried out, unspecified reason (principal)
CPT/HCPCS: 81003; 84132

== ENCOUNTER → 2022-09-13 12:45 | Day surgery (SDC) | payer MEDICARE, MEDICAID, SELFPAY ==
--- NOTE | 2022-09-28 13:22 | PM.HP ---
Providers/Chief Complaint Primary Care Provider: Jae Rojas DO History of Present Illness Yessica Salcedo is a 52 year old female Medications/Allergies Home Medications Medication Instructions Recorded Confirmed Last Taken Type olopatadine 0.2 % eye drops 1 drp ophthalmic (eye) DAILY 02/10/22 09/16/22 1 Day Ago History (Pataday Once Daily Relief) ~02/09/22 diazepam 10 mg tablet (Valium) 10 mg PO BID PRN anxiety #20 tabs 04/02/22 09/16/22 Unknown Rx cholecalciferol (vitamin D3) 50 50 mcg PO BID 04/15/22 09/16/22 Unknown History mcg (2,000 unit) tablet isosorbide dinitrate 5 mg tablet 5 mg PO BID #1 tab 07/02/22 09/16/22 Unknown Rx CPAP (Auto-Titrating CPAP) #1 ea 08/20/22 09/16/22 Unknown Rx carvedilol 12.5 mg tablet 12.5 mg PO BID #180 tabs 09/07/22 09/16/22 Unknown Rx Allergies Allergy/AdvReac Type Severity Reaction Status Date / Time sulfamethoxazole Allergy Severe anaphylaxis Verified 09/16/22 07:37 cephalexin [From Keflex] Allergy Unknown Unknown Verified 09/16/22 07:37 lisinopril AdvReac Mild ADR-Cough Verified 09/16/22 07:37 PFSH Acute PFSH: Medical History (Updated 08/24/22 @ 09:10 by Regla Jones RN) Alzheimer's disease with early onset Anemia affecting 10th Asthma Asymptomatic microscopic hematuria Diabetes STANISLAW (iron deficiency anemia) Migraine Surgical History History of right hip replacement Hx of tonsillectomy Family History Father Family history of premature coronary artery disease Father No problems noted. Social History Smoking and tobacco status: current every day smoker cigarettes Packs smoked per day: 2 Years cigarettes smoked: 31 [ Other cigarette details: 62PY] Quit status (tobacco): has tried quititng Second hand smoke exposure: Yes Smoking risk assessment/counseling performed?: Yes Tobacco counseling given: provider counseling and counseling >3 minutes Alcohol intake: current Alcohol intake frequency: 0-2 Drinks per Day Alcohol type: wine and hard liquor Desire information about alcohol rehabilitation?: No Last alcohol use date: 07/16/21 Last alcohol use time: 23:26 Other details last alcohol use: testing Last substance use date: 07/14/21 Last substance use time: 08:00 Other details last substance use: help service: Yes Coding Level of Care Code Acute Code for [facility]
--- NOTE | 2022-10-08 10:10 | PM.HP ---
Providers/Chief Complaint Primary Care Provider: Jae Rojas DO History of Present Illness Yessica Salcedo is a 52 year old female Medications/Allergies Home Medications Medication Instructions Recorded Confirmed Last Taken Type olopatadine 0.2 % eye drops 1 drp ophthalmic (eye) DAILY 02/10/22 09/16/22 1 Day Ago History (Pataday Once Daily Relief) ~02/09/22 diazepam 10 mg tablet (Valium) 10 mg PO BID PRN anxiety #20 tabs 04/02/22 09/16/22 Unknown Rx cholecalciferol (vitamin D3) 50 50 mcg PO BID 04/15/22 09/16/22 Unknown History mcg (2,000 unit) tablet isosorbide dinitrate 5 mg tablet 5 mg PO BID #1 tab 07/02/22 09/16/22 Unknown Rx CPAP (Auto-Titrating CPAP) #1 ea 08/20/22 09/16/22 Unknown Rx carvedilol 12.5 mg tablet 12.5 mg PO BID #180 tabs 09/07/22 09/16/22 Unknown Rx isosorbide mononitrate 120 mg 120 mg PO DAILY 10/04/22 10/04/22 Unknown History tablet,extended release 24 hr Allergies Allergy/AdvReac Type Severity Reaction Status Date / Time sulfamethoxazole Allergy Severe anaphylaxis Verified 09/16/22 07:37 cephalexin [From Keflex] Allergy Unknown Unknown Verified 09/16/22 07:37 lisinopril AdvReac Mild ADR-Cough Verified 09/16/22 07:37 PFSH Acute PFSH: Medical History (Updated 08/24/22 @ 09:10 by Regla Jones RN) Alzheimer's disease with early onset Anemia affecting 10th Asthma Asymptomatic microscopic hematuria Diabetes STANISLAW (iron deficiency anemia) Migraine Surgical History History of right hip replacement Hx of tonsillectomy Family History Father Family history of premature coronary artery disease Father No problems noted. Social History Smoking and tobacco status: current every day smoker cigarettes Packs smoked per day: 2 Years cigarettes smoked: 31 [ Other cigarette details: 62PY] Quit status (tobacco): has tried quititng Second hand smoke exposure: Yes Smoking risk assessment/counseling performed?: Yes Tobacco counseling given: provider counseling and counseling >3 minutes Alcohol intake: current Alcohol intake frequency: 0-2 Drinks per Day Alcohol type: wine and hard liquor Desire information about alcohol rehabilitation?: No Last alcohol use date: 07/16/21 Last alcohol use time: 23:26 Other details last alcohol use: testing Last substance use date: 07/14/21 Last substance use time: 08:00 Other details last substance use: help service: Yes
--- NOTE | 2022-10-22 10:30 | PM.PN ---
Coding Level of Care Code Acute Code for [facility]
== END ==
PROVIDERS: PCP Family Medicine; Visit Provider Surgery
DX: Z01.818 Encounter for other preprocedural examination (principal)
CPT/HCPCS: 93005

== ENCOUNTER → 2022-11-03 14:19 | Outpatient (BNVA) | payer SELFPAY | PROVIDERS: Family Provider Family Medicine; PCP Family Medicine; Visit Provider Hospitalist | DX: J45.909 Unspecified asthma, uncomplicated (principal) | CPT/HCPCS: 93005 ==

== ENCOUNTER → 2022-11-15 09:01 | Outpatient (BNVA) | payer OTHER, SELFPAY | PROVIDERS: Family Provider Family Medicine; PCP Family Medicine; Visit Provider Internal Medicine Cardiovascular Disease | DX: R01.1 Cardiac murmur, unspecified (principal) | CPT/HCPCS: 93005 ==

== ENCOUNTER → 2022-11-17 12:27 | Outpatient (BNVA) | payer OTHER, SELFPAY ==
--- NOTE | 2022-11-19 18:46 | PM.HP ---
Providers/Chief Complaint Primary Care Provider: Jae Rojas DO Chief Complaint: HEADINJ History of Present Illness Yessica Salcedo is a 52 year old female Medications/Allergies Home Medications Medication Instructions Recorded Confirmed Last Taken Type olopatadine 0.2 % eye drops 1 drp ophthalmic (eye) DAILY 02/10/22 10/27/22 1 Day Ago History (Pataday Once Daily Relief) ~02/09/22 diazepam 10 mg tablet (Valium) 10 mg PO BID PRN anxiety #20 tabs 04/02/22 10/27/22 Unknown Rx cholecalciferol (vitamin D3) 50 50 mcg PO BID 04/15/22 10/27/22 Unknown History mcg (2,000 unit) tablet isosorbide dinitrate 5 mg tablet 5 mg PO BID #1 tab 07/02/22 10/27/22 Unknown Rx CPAP (Auto-Titrating CPAP) #1 ea 08/20/22 10/27/22 Unknown Rx carvedilol 12.5 mg tablet 12.5 mg PO BID #180 tabs 09/07/22 10/27/22 Unknown Rx isosorbide mononitrate 120 mg 120 mg PO DAILY 10/04/22 10/27/22 Unknown History tablet,extended release 24 hr hydrocodone 10 mg-acetaminophen 1 tab PO BID PRN pain 5 days #10 10/12/22 10/27/22 Unknown Rx 300 mg tablet tabs lisinopril 10 mg tablet See Rx Instructions PO DAILY 30 11/04/22 Unknown Rx days #30 tabs Allergies Allergy/AdvReac Type Severity Reaction Status Date / Time sulfamethoxazole Allergy Severe anaphylaxis Verified 10/27/22 05:11 cephalexin [From Keflex] Allergy Unknown Unknown Verified 10/27/22 05:11 lisinopril AdvReac Mild ADR-Cough Verified 10/27/22 05:11 PFSH Acute PFSH: Medical History Alzheimer's disease with early onset Anemia affecting 10th Asthma Asymptomatic microscopic hematuria Diabetes STANISLAW (iron deficiency anemia) Migraine Surgical History History of right hip replacement Hx of tonsillectomy Family History Father Family history of premature coronary artery disease Father No problems noted. Social History Smoking and tobacco status: current every day smoker cigarettes Packs smoked per day: 2 Years cigarettes smoked: 31 [ Other cigarette details: 62PY] and cigars Cigars smoked per week: 5 Years smoked cigars: 3 Cigar details: smokes with friends Quit status (tobacco): has tried quititng Second hand smoke exposure: Yes Smoking risk assessment/counseling performed?: Yes Tobacco counseling given: provider counseling and counseling >3 minutes Alcohol intake: current Alcohol intake frequency: 0-2 Drinks per Day Alcohol type: wine and hard liquor Desire information about alcohol rehabilitation?: No Counseling given: Yes Type of alcohol counseling provided: provider counseling Last alcohol use date: 07/16/21 Last alcohol use time: 23:26 Other details last alcohol use: testing Substance/Drug Use: former Desire information about substance/drug rehabilitation?: No Counseling given: No Reason substance/drug use counseling not done: medical reasons Other substance/drug use counseling details: not a candidate Last substance use date: 07/14/21 Last substance use time: 08:00 Other details last substance use: help Adopted: No Caregiver/support person: No Lives independently: Yes Household members: spouse Housing: House Marital status: Marital status details: rough Number of children: 8 Number of grandchildren: 53 Highest education level completed: High School Graduate Education level details: hates school service: Yes status: Retired branch: [employer] Assignments: Deployed number of deployments: 1 Known or Potential Exposure: None Current occupational status: retired Current occupational exposures/hazards: Yes Pets and animals: Yes Pets & animals: dog(s) and turtle(s) Leisure activites: exercise and hunting Sexually active: Yes How many partners: 20 Are you practicing safe sex: Yes Do you think of yourself as: Straight/Heterosexual Current gender identity: Male Maye/Congregational: Denominational Special maye needs: Yes Details: Jehovahs Witness Agree to transfusion: No Financial difficulty paying for basics: Somewhat Hard Coding Level of Care Code G0426 (50 min) TH Encounter Time (min): 55 Patient seen via Telehealth in the acute care setting (hospital or ED location) by agreement and consent of patient or patient outbound sales representative. Telehealth technology used during the visit include video and audio. This patient encounter is appropriate and reasonable under the circumstances given the patient?s particular presentation at this time. The patient has been advised of the potential risks and limitations of this mode of treatment (including but not limited to the absence of in-person examination at this time) and has agreed to be treated by an off-site physician for this visit. If deemed clinically necessary from this telehealth visit, or if condition or consent for telehealth visit changes, an in-person visit will be arranged. For this encounter, total time, as shown, for the origination of telehealth care on this date is between 50-69 minutes. Diagnoses
--- NOTE | 2022-11-19 19:36 | PM.HP ---
Providers/Chief Complaint Primary Care Provider: Jae Rojas DO Chief Complaint: HEADINJ History of Present Illness Yessica Salcedo is a 52 year old female Medications/Allergies Home Medications Medication Instructions Recorded Confirmed Last Taken Type olopatadine 0.2 % eye drops 1 drp ophthalmic (eye) DAILY 02/10/22 10/27/22 1 Day Ago History (Pataday Once Daily Relief) ~02/09/22 diazepam 10 mg tablet (Valium) 10 mg PO BID PRN anxiety #20 tabs 04/02/22 10/27/22 Unknown Rx cholecalciferol (vitamin D3) 50 50 mcg PO BID 04/15/22 10/27/22 Unknown History mcg (2,000 unit) tablet isosorbide dinitrate 5 mg tablet 5 mg PO BID #1 tab 07/02/22 10/27/22 Unknown Rx CPAP (Auto-Titrating CPAP) #1 ea 08/20/22 10/27/22 Unknown Rx carvedilol 12.5 mg tablet 12.5 mg PO BID #180 tabs 09/07/22 10/27/22 Unknown Rx isosorbide mononitrate 120 mg 120 mg PO DAILY 10/04/22 10/27/22 Unknown History tablet,extended release 24 hr hydrocodone 10 mg-acetaminophen 1 tab PO BID PRN pain 5 days #10 10/12/22 10/27/22 Unknown Rx 300 mg tablet tabs lisinopril 10 mg tablet See Rx Instructions PO DAILY 30 11/04/22 Unknown Rx days #30 tabs Allergies Allergy/AdvReac Type Severity Reaction Status Date / Time sulfamethoxazole Allergy Severe anaphylaxis Verified 10/27/22 05:11 cephalexin [From Keflex] Allergy Unknown Unknown Verified 10/27/22 05:11 lisinopril AdvReac Mild ADR-Cough Verified 10/27/22 05:11 PFSH Acute PFSH: Medical History Alzheimer's disease with early onset Anemia affecting 10th Asthma Asymptomatic microscopic hematuria Diabetes STANISLAW (iron deficiency anemia) Migraine Surgical History History of right hip replacement Hx of tonsillectomy Family History Father Family history of premature coronary artery disease Father No problems noted. Social History Smoking and tobacco status: current every day smoker cigarettes Packs smoked per day: 2 Years cigarettes smoked: 31 [ Other cigarette details: 62PY] and cigars Cigars smoked per week: 5 Years smoked cigars: 3 Cigar details: smokes with friends Quit status (tobacco): has tried quititng Second hand smoke exposure: Yes Smoking risk assessment/counseling performed?: Yes Tobacco counseling given: provider counseling and counseling >3 minutes Alcohol intake: current Alcohol intake frequency: 0-2 Drinks per Day Alcohol type: wine and hard liquor Desire information about alcohol rehabilitation?: No Counseling given: Yes Type of alcohol counseling provided: provider counseling Last alcohol use date: 07/16/21 Last alcohol use time: 23:26 Other details last alcohol use: testing Substance/Drug Use: former Desire information about substance/drug rehabilitation?: No Counseling given: No Reason substance/drug use counseling not done: medical reasons Other substance/drug use counseling details: not a candidate Last substance use date: 07/14/21 Last substance use time: 08:00 Other details last substance use: help Adopted: No Caregiver/support person: No Lives independently: Yes Household members: spouse Housing: House Marital status: Marital status details: rough Number of children: 8 Number of grandchildren: 53 Highest education level completed: High School Graduate Education level details: hates school service: Yes status: Retired branch: [employer] Assignments: Deployed number of deployments: 1 Known or Potential Exposure: None Current occupational status: retired Current occupational exposures/hazards: Yes Pets and animals: Yes Pets & animals: dog(s) and turtle(s) Leisure activites: exercise and hunting Sexually active: Yes How many partners: 20 Are you practicing safe sex: Yes Do you think of yourself as: Straight/Heterosexual Current gender identity: Male Maye/Sikhism: Nondenominational Special maye needs: Yes Details: Jehovahs Witness Agree to transfusion: No Financial difficulty paying for basics: Somewhat Hard Coding Level of Care Code G0425 (30 min) TH Encounter Time (min): 30 Diagnoses
== END ==
PROVIDERS: Family Provider Family Medicine; PCP Family Medicine; Visit Provider Internal Medicine Cardiovascular Disease
DX: J45.909 Unspecified asthma, uncomplicated (principal)
CPT/HCPCS: 93005

== ENCOUNTER 2022-12-16 19:32 | Outpatient (CLI) | payer OTHER, SELFPAY | END 2022-12-16 19:33 | disposition home or self-care (01) | LOC: GILAB 19:33 | PROVIDERS: Family Provider Family Medicine; PCP Family Medicine; Visit Provider Family Medicine | DX: Z12.31 Encounter for screening mammogram for malignant neoplasm of breast (principal) | CPT/HCPCS: 77063; 77067 ==

== ENCOUNTER → 2023-02-22 09:38 | Outpatient (BNVA) | payer BC, SELFPAY | PROVIDERS: Family Provider Family Medicine; PCP Family Medicine; Visit Provider Obstetrics & Gynecology Gynecology | DX: R01.1 Cardiac murmur, unspecified (principal) | CPT/HCPCS: 93005 ==

== ENCOUNTER 2023-02-24 11:15 | Outpatient (CLI) | payer BC, SELFPAY | END 2023-02-24 11:16 | disposition home or self-care (01) | LOC: RAD 11:17 | PROVIDERS: Family Provider Family Medicine; PCP Family Medicine | DX: Z01.89 Encounter for other specified special examinations (principal) | CPT/HCPCS: 71045; 71046; 71047; 85730 ==

== ENCOUNTER 2023-03-01 14:49 | Outpatient (CLI) | payer BC, SELFPAY ==
--- NOTE | 2023-03-08 09:34 | P.HP_ITS ---
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 History of Present Illness Yessica PEDERSEN is a 52 year old female Medications/Allergies Home Medications Medication Instructions Recorded Confirmed Last Taken Type olopatadine 0.2 % eye drops 1 drp ophthalmic (eye) DAILY 02/10/22 10/27/22 1 Day Ago History (Pataday Once Daily Relief) ~02/09/22 cholecalciferol (vitamin D3) 50 50 mcg PO BID 04/15/22 10/27/22 Unknown History mcg (2,000 unit) tablet isosorbide dinitrate 5 mg tablet 5 mg PO BID #1 tab 07/02/22 10/27/22 Unknown Rx CPAP (Auto-Titrating CPAP) #1 ea 08/20/22 10/27/22 Unknown Rx isosorbide mononitrate 120 mg 120 mg PO DAILY 10/04/22 10/27/22 Unknown History tablet,extended release 24 hr hydrocodone 10 mg-acetaminophen 1 tab PO BID PRN pain 5 days #10 10/12/22 10/27/22 Unknown Rx 300 mg tablet tabs lisinopril 10 mg tablet See Rx Instructions PO DAILY 30 11/04/22 Unknown Rx days #30 tabs carvedilol 12.5 mg tablet 12.5 mg PO BID #1 tab 11/29/22 11/29/22 Unknown Rx diazepam 10 mg tablet (Valium) 10 mg PO BID PRN anxiety #20 tabs 11/29/22 Unknown Rx lorazepam 0.5 mg tablet 0.5 mg PO DAILY PRN anxiety #1 tab 11/29/22 Unknown Rx hydrocodone bitartrate 10 mg 10 mg PO Q12H 5 days #10 ea 12/14/22 Unknown Rx capsule, oral only, extended rel 12 hr hydrocodone 5 mg-acetaminophen 325 1 tab PO BID PRN pain 10 days #10 12/16/22 Unknown Rx mg tablet tabs hydrocodone 5 mg-acetaminophen 325 1 tab PO BID Pain 5 days #10 tabs 12/16/22 Unknown Rx mg tablet aspirin 81 mg chewable tablet 81 mg PO DAILY 12/31/22 12/31/22 Unknown History Allergies Allergy/AdvReac Type Severity Reaction Status Date / Time ciprofloxacin Allergy Severe ALGY-Anaphy Verified 12/31/22 15:29 laxis sulfamethoxazole Allergy Severe anaphylaxis Verified 10/27/22 05:11 cephalexin [From Keflex] Allergy Unknown Unknown Verified 10/27/22 05:11 lisinopril AdvReac Mild ADR-Cough Verified 10/27/22 05:11 PFSH Acute PFSH: Medical History (Updated 02/11/23 @ 14:44 by Saji Encarnacion) Alzheimer's disease with early onset Anemia affecting 10th Asthma Asymptomatic microscopic hematuria Diabetes STANISLAW (iron deficiency anemia) Migraine Wound of left ankle Surgical History History of right hip replacement Hx of tonsillectomy Family History Father Family history of premature coronary artery disease Father No problems noted. Social History Smoking and tobacco status: current every day smoker cigarettes Packs smoked per day: 2 Years cigarettes smoked: 31 [ Other cigarette details: 62PY] and cigars Cigars smoked per week: 5 Years smoked cigars: 3 Cigar details: smokes with friends Quit status (tobacco): has tried quititng Second hand smoke exposure: Yes Smoking risk assessment/counseling performed?: Yes Tobacco counseling given: provider counseling and counseling >3 minutes Alcohol intake: current Alcohol intake frequency: 0-2 Drinks per Day Alcohol type: wine and hard liquor Desire information about alcohol rehabilitation?: No Counseling given: Yes Type of alcohol counseling provided: provider counseling Last alcohol use date: 07/16/21 Last alcohol use time: 23:26 Other details last alcohol use: testing Substance/Drug Use: former Desire information about substance/drug rehabilitation?: No Counseling given: No Reason substance/drug use counseling not done: medical reasons Other substance/drug use counseling details: not a candidate Last substance use date: 07/14/21 Last substance use time: 08:00 Other details last substance use: help Adopted: No Caregiver/support person: No Lives independently: Yes Household members: spouse Housing: House Marital status: Marital status details: rough Number of children: 8 Number of grandchildren: 53 Highest education level completed: High School Graduate Education level details: hates school service: Yes status: Retired branch: [employer] Assignments: Deployed number of deployments: 1 Known or Pot ential Exposure: None Current occupational status: retired Current occupational exposures/hazards: Yes Pets and animals: Yes Pets & animals: dog(s) and turtle(s) Leisure activites: exercise and hunting Sexually active: Yes How many partners: 20 Are you practicing safe sex: Yes Do you think of yourself as: Straight/Heterosexual Current gender identity: Male Maye/Anglican: Restorationism Special maye needs: Yes Details: Jehovahs Witness Agree to transfusion: No Financial difficulty paying for basics: Somewhat Hard Coding Level of Care Code Critical Care >/= 30 minutes Critical care time (in minutes): 35 The high probability of a clinically significant, sudden or life threatening deterioration, as referenced in this documentation, required my full and direct attention, intervention and personal management. The critical care time shown is in addition to time spent performing any reported separately billable procedures and includes the following: [x] Data and vital sign review and interpretation [x ] Patient assessment, examination and intervention [x] Medication orders and management [x] Patient/Family updates as able [x] Care Coordination and Documentation. Diagnoses
--- NOTE | 2023-03-09 16:29 | W.PM.BPON ---
Date of Procedure: 03/09/23 Surgeon: Barbie Billings MD Core Analysis Operator(s): [] Procedure(s) performed: [] Findings of the procedure(s): [] Estimated blood loss: [] Specimen(s) removed: [] Post-operative diagnosis: []
[2023-04-08 15:02] LABS: HCG Tumor Marker 1 mIU/mL (0-3)
--- NOTE | 2023-04-13 11:07 | ED_ITS ---
Review of Systems General: Reports: 10 or more systems reviewed and unremarkable except in HPI and below PFSH ED PFSH: Medical History (Updated 02/11/23 @ 14:44 by Saji Encarnacion) Alzheimer's disease with early onset Anemia affecting 10th Asthma Asymptomatic microscopic hematuria Diabetes STANISLAW (iron deficiency anemia) Migraine Wound of left ankle Surgical History (Updated 03/09/23 @ 16:34 by Barbie Billings MD) History of right hip replacement Hx of tonsillectomy Family History Father Family history of premature coronary artery disease Father No problems noted. Social History Smoking and tobacco status: current every day smoker cigarettes Packs smoked per day: 2 Years cigarettes smoked: 31 [ Other cigarette details: 62PY] and cigars Cigars smoked per week: 5 Years smoked cigars: 3 Cigar details: smokes with friends Quit status (tobacco): has tried quititng Second hand smoke exposure: Yes Smoking risk assessment/counseling performed?: Yes Tobacco counseling given: provider counseling and counseling >3 minutes Alcohol intake: current Alcohol intake frequency: 0-2 Drinks per Day Alcohol type: wine and hard liquor Desire information about alcohol rehabilitation?: No Counseling given: Yes Type of alcohol counseling provided: provider counseling Last alcohol use date: 07/16/21 Last alcohol use time: 23:26 Other details last alcohol use: testing Substance/Drug Use: former Desire information about substance/drug rehabilitation?: No Counseling given: No Reason substance/drug use counseling not done: medical reasons Other substance/drug use counseling details: not a candidate Last substance use date: 07/14/21 Last substance use time: 08:00 Other details last substance use: help Adopted: No Caregiver/support person: No Lives independently: Yes Household members: spouse Housing: House Marital status: Marital status details: rough Number of children: 8 Number of grandchildren: 53 Highest education level completed: High School Graduate Education level details: hates school service: Yes status: Retired branch: [employer] Assignments: Deployed number of deployments: 1 Known or Potential Exposure: None Current occupational status: retired Current occupational exposures/hazards: Yes Pets and animals: Yes Pets & animals: dog(s) and turtle(s) Leisure activites: exercise and hunting Sexually active: Yes How many partners: 20 Are you practicing safe sex: Yes Do you think of yourself as: Straight/Heterosexual Current gender identity: Male Maye/Jehovah'S Witness: Nondenominational Special maye needs: Yes Details: Jehovahs Witness Agree to transfusion: No Financial difficulty paying for basics: Somewhat Hard MDM - Abdominal Pain Lab Data Labs/Radiology: Laboratory Results Troponin T Baseline Cancelled 04/05/23 11:13 Troponin T 120 Minute Cancelled 04/08/23 13:16 Delta Troponin T Cancelled 04/08/23 13:16 Tumor Marker HCG 1 mIU/mL (0-3) 04/08/23 13:16 Folate Cancelled 04/08/23 13:16 Ser , Semi-Qnt 1.00 mIU/mL 04/08/23 13:16 SARS-CoV-2 Ag (Rapid) Cancelled 03/30/23 15:47 Discharge Plan Discharge Patient Disposition: Home Prescriptions: No Action carvedilol 12.5 mg tablet 12.5 mg PO BID Qty: 1 0RF Rx Instructions: TESTING SCRIPT, DO NOT FILL!!! isosorbide dinitrate 5 mg tablet 5 mg PO BID Qty: 1 0RF Rx Instructions: DO NOT FILL. TEST ONLY cholecalciferol (vitamin D3) 50 mcg (2,000 unit) tablet 50 mcg PO BID (DME) Auto-Titrating CPAP Device See Rx Instructions .Route Qty: 1 0RF Rx Instructions: heated tubing, auto titrating, c-pap supplies/mask, lifetime need hydrocodone-acetaminophen 10-300 mg tablet 1 tab PO BID PRN (Reason: pain) 5 Days Qty: 10 0RF lisinopril 10 mg tablet See Rx Instructions PO DAILY 30 Days Qty: 30 3RF Rx Instructions: take one-half to one tablet once a day, if needed for anxiety orally daily; diazepam [Valium] 10 mg tablet 10 mg PO BID PRN (Reason: anxiety) Qty: 20 0RF Rx Instructions: Do Not Fill - Test Rx lorazepam 0.5 mg tablet 0.5 mg PO DAILY PRN (Reason: anxiety) Qty: 1 0RF Rx Instructions: TEST SCRIPT DO NOT FILL!!!!!!!!! hydrocodone bitartrate 10 mg capsule, oral only, ER 12hr 10 mg PO Q12H 5 Days Qty: 10 0RF hydrocodone-acetaminophen 5-325 mg tablet 1 tab PO BID 5 Days Qty: 10 0RF Rx Instructions: TEST SCRIPT ONLY hydrocodone-acetaminophen 5-325 mg tablet 1 tab PO BID PRN (Reason: pain) 10 Days Qty: 10 0RF Rx Instructions: TEST SCRIPT ONLY Pataday Once Daily Relief 0.2 % Drops 1 drp OPHTHALMIC (EYE) DAILY isosorbide mononitrate 120 mg Tablet Extended Release 24 Hr 120 mg PO DAILY aspirin 81 mg tablet,chewable 81 mg PO DAILY Discharge Orders: Discharge Order (Routine); Ordered 04/13/23 Ordered By: Guerrero Faulkner Discharge Date/Time: 03/01/23 14:50 Coding Level of Care Code ED Cut Lace Machine Operator for Felicita Roldan
== END 2023-03-01 14:50 | disposition home or self-care (01) ==
LOC: RAD 14:50
PROVIDERS: Family Provider Family Medicine; PCP Family Medicine
DX: Z01.89 Encounter for other specified special examinations (principal)
CPT/HCPCS: 71045

== ENCOUNTER → 2023-05-05 13:48 | Outpatient (BNVA) | payer BC, SELFPAY ==
--- NOTE | 2023-05-19 15:06 | ANES.PREANE2 ---
Pre-Anesthetic Assessment Height/Weight: Height 1.78 m Social No alcohol and No tobacco Medications/Allergies Home Medications Medication Instructions Recorded Confirmed Last Taken Type olopatadine 0.2 % eye drops 1 drp ophthalmic (eye) DAILY 02/10/22 06/24/23 06/23/23 History (Pataday Once Daily Relief) cholecalciferol (vitamin D3) 50 50 mcg PO BID 04/15/22 06/24/23 06/23/23 History mcg (2,000 unit) tablet isosorbide dinitrate 5 mg tablet 5 mg PO BID #1 tab 07/02/22 06/24/23 06/23/23 Rx CPAP (Auto-Titrating CPAP) #1 ea 08/20/22 06/24/23 06/23/23 Rx isosorbide mononitrate 120 mg 120 mg PO DAILY 10/04/22 06/24/23 06/23/23 History tablet,extended release 24 hr hydrocodone 10 mg-acetaminophen 1 tab PO BID PRN pain 5 days #10 10/12/22 06/24/23 06/23/23 Rx 300 mg tablet tabs lisinopril 10 mg tablet See Rx Instructions PO DAILY 30 11/04/22 06/24/23 06/23/23 Rx days #30 tabs carvedilol 12.5 mg tablet 12.5 mg PO BID #1 tab 11/29/22 06/24/23 06/23/23 Rx diazepam 10 mg tablet (Valium) 10 mg PO BID PRN anxiety #20 tabs 11/29/22 06/24/23 06/23/23 Rx lorazepam 0.5 mg tablet 0.5 mg PO DAILY PRN anxiety #1 tab 11/29/22 06/24/23 06/23/23 Rx hydrocodone bitartrate 10 mg 10 mg PO Q12H 5 days #10 ea 12/14/22 06/24/23 06/23/23 Rx capsule, oral only, extended rel 12 hr hydrocodone 5 mg-acetaminophen 325 1 tab PO BID PRN pain 10 days #10 12/16/22 06/24/23 06/23/23 Rx mg tablet tabs hydrocodone 5 mg-acetaminophen 325 1 tab PO BID Pain 5 days #10 tabs 12/16/22 06/24/23 06/23/23 Rx mg tablet aspirin 81 mg chewable tablet 81 mg PO DAILY 12/31/22 06/24/23 06/23/23 History lansoprazole 15 mg capsule,delayed 15 mg PO DAILY 06/24/23 06/24/23 06/23/23 History release Allergies Allergy/AdvReac Type Severity Reaction Status Date / Time ciprofloxacin Allergy Severe ALGY-Anaphy Verified 06/14/23 07:57 laxis sulfamethoxazole Allergy Severe anaphylaxis Verified 06/14/23 07:57 cephalexin [From Keflex] Allergy Unknown Unknown Verified 06/14/23 07:57 lisinopril AdvReac Mild ADR-Cough Verified 06/14/23 07:57 [facility] Anesthesia Medical History Alzheimer's disease with early onset Anemia affecting 10th Asthma Asymptomatic microscopic hematuria Diabetes STANISLAW (iron deficiency anemia) Migraine Wound of left ankle Surgical History History of right hip replacement Hx of tonsillectomy Family History (Updated 04/27/23 @ 13:35 by Barbie Billings MD) Father Family history of premature coronary artery disease Father No problems noted. Father No problems noted. Other Alzheimer's dementia Autism Denies family history of Breast cancer Social History Smoking and tobacco/nicotine status: current every day tobacco/nicotine user cigarettes Packs smoked per day: 2 Years cigarettes smoked: 31 [ Other cigarette details: 62PY] and cigars Cigars smoked per week: 5 Years smoked cigars: 3 Cigar details: smokes with friends Quit status (tobacco/nicotine): has tried quititng Second hand smoke exposure: Yes Alcohol intake: current Alcohol intake frequency: 0-2 Drinks per Day Alcohol type: wine and hard liquor Substance/Drug Use: former Adopted: No Caregiver/support person: No Lives independently: Yes Household members: spouse Housing: House Marital status: Marital status details: rough Number of children: 8 Number of grandchildren: 53 Highest education level completed: High School Graduate Education level details: hates school service: Yes status: Retired branch: [employer] Assignments: Deployed number of deployments: 1 Known or Potential Exposure: None Current occupational status: retired Current occupational exposures/hazards: Yes Pets and animals: Yes Pets & animals: dog(s) and turtle(s) Leisure activites: exercise and hunting Sexually active: Yes How many partners: 20 Are you practicing safe sex: Yes Do you think of yourself as: Straight/Heterosexual Current gender identity: Male Maye/Yarsani: Hoahaoism Special maye needs: Yes Details: Jehovahs Witness Agree to transfusion: No Data Anesthesia Cardiac Studies: No Data to Display
== END ==
PROVIDERS: Family Provider Family Medicine; PCP Family Medicine
DX: R01.1 Cardiac murmur, unspecified (principal)
CPT/HCPCS: 93005

== ENCOUNTER 2023-06-01 09:56 | Outpatient (CLI) | payer SELFPAY ==
--- NOTE | 2023-06-06 08:54 | P.CONIM_ITS ---
Providers/Reason For Consult Reason for Consult*: Chest pain Requesting Physician: Dr. Hickman Attending Physician: Sandhya Oneil DO Primary Care Provider: Jae Rojas DO Review of Systems Narrative: Detail 10 point systemic review is unremarkable. Except for as mentioned above in the history of physical illness Medications/Allergies Home Medications Medication Instructions Recorded Confirmed Last Taken Type olopatadine 0.2 % eye drops 1 drp ophthalmic (eye) DAILY 02/10/22 10/27/22 1 Day Ago History (Pataday Once Daily Relief) ~02/09/22 cholecalciferol (vitamin D3) 50 50 mcg PO BID 04/15/22 10/27/22 Unknown History mcg (2,000 unit) tablet isosorbide dinitrate 5 mg tablet 5 mg PO BID #1 tab 07/02/22 10/27/22 Unknown Rx CPAP (Auto-Titrating CPAP) #1 ea 08/20/22 10/27/22 Unknown Rx isosorbide mononitrate 120 mg 120 mg PO DAILY 10/04/22 10/27/22 Unknown History tablet,extended release 24 hr hydrocodone 10 mg-acetaminophen 1 tab PO BID PRN pain 5 days #10 10/12/22 10/27/22 Unknown Rx 300 mg tablet tabs lisinopril 10 mg tablet See Rx Instructions PO DAILY 30 11/04/22 Unknown Rx days #30 tabs carvedilol 12.5 mg tablet 12.5 mg PO BID #1 tab 11/29/22 11/29/22 Unknown Rx diazepam 10 mg tablet (Valium) 10 mg PO BID PRN anxiety #20 tabs 11/29/22 Unknown Rx lorazepam 0.5 mg tablet 0.5 mg PO DAILY PRN anxiety #1 tab 11/29/22 Unknown Rx hydrocodone bitartrate 10 mg 10 mg PO Q12H 5 days #10 ea 12/14/22 Unknown Rx capsule, oral only, extended rel 12 hr hydrocodone 5 mg-acetaminophen 325 1 tab PO BID PRN pain 10 days #10 12/16/22 Unknown Rx mg tablet tabs hydrocodone 5 mg-acetaminophen 325 1 tab PO BID Pain 5 days #10 tabs 12/16/22 Unknown Rx mg tablet aspirin 81 mg chewable tablet 81 mg PO DAILY 12/31/22 12/31/22 Unknown History Allergies Allergy/AdvReac Type Severity Reaction Status Date / Time ciprofloxacin Allergy Severe ALGY-Anaphy Verified 12/31/22 15:29 laxis sulfamethoxazole Allergy Severe anaphylaxis Verified 10/27/22 05:11 cephalexin [From Keflex] Allergy Unknown Unknown Verified 10/27/22 05:11 lisinopril AdvReac Mild ADR-Cough Verified 10/27/22 05:11 All the medicines were reviewed PFSH Acute PFSH: Medical History Alzheimer's disease with early onset Anemia affecting 10th Asthma Asymptomatic microscopic hematuria Diabetes STANISLAW (iron deficiency anemia) Migraine Wound of left ankle Surgical History History of right hip replacement Hx of tonsillectomy Family History (Updated 04/27/23 @ 13:35 by Barbie Billings MD) Father Family history of premature coronary artery disease Father No problems noted. Father No problems noted. Other Alzheimer's dementia Autism Denies family history of Breast cancer Social History Smoking and tobacco/nicotine status: current every day tobacco/nicotine user cigarettes Packs smoked per day: 2 Years cigarettes smoked: 31 [ Other cigarette details: 62PY] and cigars Cigars smoked per week: 5 Years smoked cigars: 3 Cigar details: smokes with friends Quit status (tobacco/nicotine): has tried quititng Second hand smoke exposure: Yes Alcohol intake: current Alcohol intake frequency: 0-2 Drinks per Day Alcohol type: wine and hard liquor Substance/Drug Use: former Adopted: No Caregiver/support person: No Lives independently: Yes Household members: spouse Housing: House Marital status: Marital status details: rough Number of children: 8 Number of grandchildren: 53 Highest education level completed: High School Graduate Education level details: hates school service: Yes status: Retired branch: [employer] Assignments: Deployed number of deployments: 1 Known or Potential Exposure: None Current occupational status: retired Current occupational exposures/hazards: Yes Pets and animals: Yes Pets & animals: dog(s) and turtle(s) Leisure activites: exercise and hunting Sexually active: Yes How many partners: 20 Are you practicing safe sex: Yes Do you think of yourself as: Straight/Heterosexual Current gender identity: Male Maye/Adventist: Denominational Special maye needs: Yes Details: Jehovahs Witness Agree to transfusion: No Physical Exam Narrative: Unremarkable HEENT unremarkable Cardiovascular, normal first and second heart Respiratory normal air entry Abdominal normal and soft bowel sounds normal Neuro grossly intact Skin warm and dry A&P Assessment and plan (1) Nonhealing nonsurgical wound: (2) Asthma: Qualifiers: Asthma severity: moderate Asthma persistence: persistent Asthma complication type: uncomplicated Qualified Code(s): J45.40 - Moderate persistent asthma, uncomplicated Plan 1. NSTEMI with ongoing chest pain 2.Congestive heart failure with pulmonary edema 3. Lower respiratory tract infection Coding Level of Care Code Acute Code for g Fwd Diagnoses Nonhealing nonsurgical wound T14.8XXA Asthma J45.40 Asthma severity: moderate Asthma persistence: persistent Asthma complication type: uncomplicated
--- NOTE | 2023-06-07 11:10 | W.ED.ABDPA2 ---
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 Father No problems noted. Other Alzheimer's dementia Autism Denies family history of Breast cancer Social History Smoking and tobacco/nicotine status: current every day tobacco/nicotine user cigarettes Packs smoked per day: 2 Years cigarettes smoked: 31 [ Other cigarette details: 62PY] and cigars Cigars smoked per week: 5 Years smoked cigars: 3 Cigar details: smokes with friends Quit status (tobacco/nicotine): has tried quititng Second hand smoke exposure: Yes Alcohol intake: current Alcohol intake frequency: 0-2 Drinks per Day Alcohol type: wine and hard liquor Substance/Drug Use: former Adopted: No Caregiver/support person: No Lives independently: Yes Household members: spouse Housing: House Marital status: Marital status details: rough Number of children: 8 Number of grandchildren: 53 Highest education level completed: High School Graduate Education level details: hates school service: Yes status: Retired branch: [employer] Assignments: Deployed number of deployments: 1 Known or Potential Exposure: None Current occupational status: retired Current occupational exposures/hazards: Yes Pets and animals: Yes Pets & animals: dog(s) and turtle(s) Leisure activites: exercise and hunting Sexually active: Yes How many partners: 20 Are you practicing safe sex: Yes Do you think of yourself as: Straight/Heterosexual Current gender identity: Male Maye/Adventist: Orthodox Special maye needs: Yes Details: Jehovahs Witness Agree to transfusion: No MDM - Abdominal Pain Lab Data 06/06/23 09:49 Labs/Radiology: Laboratory Results WBC Cancelled 06/06/23 09:49 Corrected WBC Cancelled 06/06/23 09:49 RBC Cancelled 06/06/23 09:49 Hgb Cancelled 06/06/23 09:49 Hct Cancelled 06/06/23 09:49 MCV Cancelled 06/06/23 09:49 MCH Cancelled 06/06/23 09:49 MCHC Cancelled 06/06/23 09:49 RDW Cancelled 06/06/23 09:49 Plt Count Cancelled 06/06/23 09:49 MPV Cancelled 06/06/23 09:49 Gran % Cancelled 06/06/23 09:49 Neut % (Auto) Cancelled 06/06/23 09:49 Lymph % (Auto) Cancelled 06/06/23 09:49 [place] % (Auto) Cancelled 06/06/23 09:49 Eos % (Auto) Cancelled 06/06/23 09:49 Baso % (Auto) Cancelled 06/06/23 09:49 Neut # (Auto) Cancelled 06/06/23 09:49 Lymph # (Auto) Cancelled 06/06/23 09:49 [place] # (Auto) Cancelled 06/06/23 09:49 Eos # (Auto) Cancelled 06/06/23 09:49 Baso # (Auto) Cancelled 06/06/23 09:49 Absolute Gran (auto) Cancelled 06/06/23 09:49 Nucleated RBC % (auto) Cancelled 06/06/23 09:49 Nucleated RBCs # Cancelled 06/06/23 09:49 Discharge Plan Discharge Patient Disposition: Home Prescriptions: Continued carvedilol 12.5 mg tablet 12.5 mg PO BID Qty: 1 0RF Rx Instructions: TESTING SCRIPT, DO NOT FILL!!! isosorbide dinitrate 5 mg tablet 5 mg PO BID Qty: 1 0RF Rx Instructions: DO NOT FILL. TEST ONLY cholecalciferol (vitamin D3) 50 mcg (2,000 unit) tablet 50 mcg PO BID (DME) Auto-Titrating CPAP Device See Rx Instructions .Route Qty: 1 0RF Rx Instructions: heated tubing, auto titrating, c-pap supplies/mask, lifetime need hydrocodone-acetaminophen 10-300 mg tablet 1 tab PO BID PRN (Reason: pain) 5 Days Qty: 10 0RF lisinopril 10 mg tablet See Rx Instructions PO DAILY 30 Days Qty: 30 3RF Rx Instructions: take one-half to one tablet once a day, if needed for anxiety orally daily; diazepam [Valium] 10 mg tablet 10 mg PO BID PRN (Reason: anxiety) Qty: 20 0RF Rx Instructions: Do Not Fill - Test Rx lorazepam 0.5 mg tablet 0.5 mg PO DAILY PRN (Reason: anxiety) Qty: 1 0RF Rx Instructions: TEST SCRIPT DO NOT FILL!!!!!!!!! hydrocodone bitartrate 10 mg capsule, oral only, ER 12hr 10 mg PO Q12H 5 Days Qty: 10 0RF hydrocodone-acetaminophen 5-325 mg tablet 1 tab PO BID 5 Days Qty: 10 0RF Rx Instructions: TEST SCRIPT ONLY hydrocodone-acetaminophen 5-325 mg tablet 1 tab PO BID PRN (Reason: pain) 10 Days Qty: 10 0RF Rx Instructions: TEST SCRIPT ONLY Pataday Once Daily Relief 0.2 % Drops 1 drp OPHTHALMIC (EYE) DAILY isosorbide mononitrate 120 mg Tablet Extended Release 24 Hr 120 mg PO DAILY aspirin 81 mg tablet,chewable 81 mg PO DAILY Discharge Date/Time: 06/01/23 15:50 Coding Level of Care Code ED [employer] B[employer] Developer for Felicita Roldan
== END 2023-06-01 15:50 | disposition home or self-care (01) ==
LOC: RAD 09:57
PROVIDERS: Family Provider Family Medicine; PCP Family Medicine; Visit Provider Family Medicine
DX: Z01.89 Encounter for other specified special examinations (principal)
CPT/HCPCS: 71045; 71046; 71047; 87798

== ENCOUNTER 2023-07-20 10:56 | Outpatient (CLI) | payer MEDICARE, SELFPAY ==
--- NOTE | 2023-08-22 12:20 | PM.PN ---
Physical Exam Urinary Catheter Management: Coley: Cath Placed During This Visit: no Coding Level of Care Code Acute Code for [facility]ar
--- NOTE | 2023-08-24 09:11 | ED_ITS ---
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 Father No problems noted. Other Alzheimer's dementia Autism Denies family history of Breast cancer Social History Smoking and tobacco/nicotine status: current every day tobacco/nicotine user cigarettes Packs smoked per day: 2 Years cigarettes smoked: 31 [ Other cigarette details: 62PY] and cigars Cigars smoked per week: 5 Years smoked cigars: 3 Cigar details: smokes with friends Quit status (tobacco/nicotine): has tried quititng Second hand smoke exposure: Yes Alcohol intake: current Alcohol intake frequency: 0-2 Drinks per Day Alcohol type: wine and hard liquor Substance/Drug Use: former Adopted: No Caregiver/support person: No Lives independently: Yes Household members: spouse Housing: House Marital status: Marital status details: rough Number of children: 8 Number of grandchildren: 53 Highest education level completed: High School Graduate Education level details: hates school service: Yes status: Retired branch: [employer] Assignments: Deployed number of deployments: 1 Known or Potential Exposure: None Current occupational status: retired Current occupational exposures/hazards: Yes Pets and animals: Yes Pets & animals: dog(s) and turtle(s) Leisure activites: exercise and hunting Sexually active: Yes How many partners: 20 Are you practicing safe sex: Yes Do you think of yourself as: Straight/Heterosexual Current gender identity: Male Maye/Yazidism: Denominational Special maye needs: Yes Details: Jehovahs Witness Agree to transfusion: No Discharge Plan Discharge Patient Disposition: Home Prescriptions: No Action carvedilol 12.5 mg tablet 12.5 mg PO BID Qty: 1 0RF Rx Instructions: TESTING SCRIPT, DO NOT FILL!!! isosorbide dinitrate 5 mg tablet 5 mg PO BID Qty: 1 0RF Rx Instructions: DO NOT FILL. TEST ONLY cholecalciferol (vitamin D3) 50 mcg (2,000 unit) tablet 50 mcg PO BID (DME) Auto-Titrating CPAP Device See Rx Instructions .Route Qty: 1 0RF Rx Instructions: heated tubing, auto titrating, c-pap supplies/mask, lifetime need hydrocodone-acetaminophen 10-300 mg tablet 1 tab PO BID PRN (Reason: pain) 5 Days Qty: 10 0RF lisinopril 10 mg tablet See Rx Instructions PO DAILY 30 Days Qty: 30 3RF Rx Instructions: take one-half to one tablet once a day, if needed for anxiety orally daily; diazepam [Valium] 10 mg tablet 10 mg PO BID PRN (Reason: anxiety) Qty: 20 0RF Rx Instructions: Do Not Fill - Test Rx lorazepam 0.5 mg tablet 0.5 mg PO DAILY PRN (Reason: anxiety) Qty: 1 0RF Rx Instructions: TEST SCRIPT DO NOT FILL!!!!!!!!! hydrocodone bitartrate 10 mg capsule, oral only, ER 12hr 10 mg PO Q12H 5 Days Qty: 10 0RF hydrocodone-acetaminophen 5-325 mg tablet 1 tab PO BID 5 Days Qty: 10 0RF Rx Instructions: TEST SCRIPT ONLY hydrocodone-acetaminophen 5-325 mg tablet 1 tab PO BID PRN (Reason: pain) 10 Days Qty: 10 0RF Rx Instructions: TEST SCRIPT ONLY olopatadine [Pataday Once Daily Relief] 0.2 % Drops 1 drp OPHTHALMIC (EYE) DAILY isosorbide mononitrate 120 mg Tablet Extended Release 24 Hr 120 mg PO DAILY aspirin 81 mg tablet,chewable 81 mg PO DAILY lansoprazole [Prevacid] 15 mg Capsule,Delayed Release(Dr/Ec) 15 mg PO DAILY Discharge Date/Time: 07/20/23 10:57 Coding Level of Care Code ED Rn Lpn Lvn for Felicita Roldan
== END 2023-07-20 10:57 | disposition home or self-care (01) ==
LOC: RAD 10:57
PROVIDERS: PCP Family Medicine
DX: Z01.89 Encounter for other specified special examinations (principal); T84.614A Infection and inflammatory reaction due to internal fixation device of right ulna, initial encounter
CPT/HCPCS: 24920; 71045

== ENCOUNTER → 2024-05-09 15:47 | Outpatient (BNVA) | payer MEDICARE, SELFPAY | PROVIDERS: PCP Family Medicine; Visit Provider Anesthesiology Pain Medicine | DX: M54.9 Dorsalgia, unspecified (principal) | CPT/HCPCS: 86850; 86900; 86920; P9016 ==

== ENCOUNTER → 2024-05-10 06:20 | Outpatient (BNVA) | payer MEDICARE, SELFPAY ==
--- NOTE | 2024-05-14 14:17 | PM.PN ---
Subjective Subjective: Kimberley I am checking to see how accurate this dictation is Physical Exam Narrative: General well-developed well-nourished white male Lymph: LYMPHATIC: no lymphadenopathy noted, lymphedema and lymphadenopathy Attestations Medical Necessity Statement*: charging for his test patient will increase my Monopoly money Coding Level of Care Code Acute Code for [facility] Fwd
--- NOTE | 2024-05-14 14:44 | PM.DCS ---
Discharge Providers Date of Discharge: May 14, 2024 Attending Provider at Discharge: Eduar Ragsdale MD Primary Care Provider: Sandhya Oneil DO Reason for Visit Reason for Visit: BACKPAIN Discharge Data Studies Completed and Pending Pending at discharge Category Date Time Status Lactate (Lactic Acid level) Stat Lab 05/14/24 14:40 Ordered Discharge Plan Discharge Patient Disposition: Condition: Prescriptions: No Action carvedilol 12.5 mg tablet 12.5 mg PO BID Qty: 1 0RF Rx Instructions: TESTING SCRIPT, DO NOT FILL!!! isosorbide dinitrate 5 mg tablet 5 mg PO BID Qty: 1 0RF Rx Instructions: DO NOT FILL. TEST ONLY cholecalciferol (vitamin D3) 50 mcg (2,000 unit) tablet 50 mcg PO BID (DME) Auto-Titrating CPAP Device See Rx Instructions .Route Qty: 1 0RF Rx Instructions: heated tubing, auto titrating, c-pap supplies/mask, lifetime need hydrocodone-acetaminophen 10-300 mg tablet 1 tab PO BID PRN (Reason: pain) 5 Days Qty: 10 0RF hydrocodone-acetaminophen 5-325 mg tablet 1 tab PO BID PRN (Reason: pain) 10 Days Qty: 10 0RF Rx Instructions: TEST SCRIPT ONLY lorazepam 0.5 mg tablet 0.5 mg PO DAILY PRN (Reason: anxiety) Qty: 1 0RF Rx Instructions: TEST SCRIPT ONLY DO NOT FILL!!! (DME) CPAP Device See Rx Instructions .Route Qty: 1 0RF Rx Instructions: As directed oxycodone-acetaminophen [Percocet] 7.5-325 mg tablet 1 tab PO Q4H PRN (Reason: cancer pain) 1 Days Qty: 1 0RF Rx Instructions: Test RX only hydrocodone-acetaminophen 5-325 mg tablet 1 tab PO BID 5 Days Qty: 10 0RF Rx Instructions: TEST SCRIPT ONLY lisinopril 10 mg tablet See Rx Instructions PO DAILY 30 Days Qty: 30 3RF Rx Instructions: take one-half to one tablet once a day, if needed for anxiety orally daily; aspirin 81 mg tablet,chewable 81 mg PO DAILY Qty: 20 0RF hydrocodone bitartrate 10 mg capsule, oral only, ER 12hr 10 mg PO Q12H 5 Days Qty: 10 0RF clonazepam 0.5 mg tablet 0.25 mg PO BID Qty: 1 0RF Rx Instructions: TEST SCRIPT ONLY, DNF olopatadine [Pataday Once Daily Relief] 0.2 % Drops 1 drp OPHTHALMIC (EYE) DAILY hydrocodone-acetaminophen 5-325 mg tablet 1 tab PO Q6H PRN (Reason: pain) Qty: 20 0RF Zithromax Z-Lg 250 mg tablet dexamethasone 2 mg tablet 2 mg PO DIRECTED Rx Instructions: Day 1-2: 4 mg, q6Day 3-4: 2 mg, q6 Day 5-6: 2 mg, q12 Orally as directed for 6 days isosorbide mononitrate 120 mg Tablet Extended Release 24 Hr 120 mg PO DAILY lansoprazole [Prevacid] 15 mg Capsule,Delayed Release(Dr/Ec) 15 mg PO DAILY Discharge Attestations Time Spent in Discharge Care*: less than 30 min Quality Metrics Clinical Quality Measures [ Acute Myocardial Infaction { Clinical Trial Participant: No; Contraindication to aspirin: None; Aspirin prescribed; Contraindication to statin: None; Statin prescribed;}. Cerebrovascular Accident { Contraindication to Antithrombotic: None; antithrombotic prescribed; Contraindication to Anticoagulation: None; anticoagulation prescribed; Contraindication to Statin: None; Statin prescribed;}. Venous Thromboembolism { Contraindication to Overlap Therapy: None; Overlap threrpy ordered; VTE Discharge Education: Education about anticoagulant therapy/Care Notes given;}. No reported AMI, CVA or VTE this stay] Coding Level of Care Code 16362
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
== END | disposition expired ==
PROVIDERS: PCP Family Medicine; Visit Provider Anesthesiology Pain Medicine
DX: Z53.9 Procedure and treatment not carried out, unspecified reason (principal)
CPT/HCPCS: 12345; 86880; 99238

== ENCOUNTER 2024-11-14 04:57 | Outpatient (RCR) | payer MEDICARE, SELFPAY ==
--- NOTE | 2024-11-15 08:13 | PM.CONSULT ---
Providers/Reason For Consult Consulting Physician/Specialty*: Attending Physician: Barbie Billings MD Primary Care Provider: Sandhya Oneil, DO History of Present Illness History of Present Illness Yessica PEDERSEN is a 54 year old female Medications/Allergies Home Medications ?Medication ?Instructions ?Recorded ?Confirmed ?Last Taken ?Type olopatadine 0.2 % eye drops 1 drp ophthalmic (eye) DAILY 02/10/22 10/29/24 06/23/23 History (Pataday Once Daily Relief) cholecalciferol (vitamin D3) 50 50 mcg PO BID 04/15/22 10/29/24 06/23/23 History mcg (2,000 unit) tablet isosorbide dinitrate 5 mg tablet 5 mg PO BID #1 tab 07/02/22 10/29/24 06/23/23 Rx CPAP (Auto-Titrating CPAP) #1 ea 08/20/22 10/29/24 06/23/23 Rx isosorbide mononitrate 120 mg 120 mg PO DAILY 10/04/22 10/29/24 06/23/23 History tablet,extended release 24 hr hydrocodone 10 mg-acetaminophen 1 tab PO BID PRN pain 5 days #10 10/12/22 10/29/24 06/23/23 Rx 300 mg tablet tabs hydrocodone 5 mg-acetaminophen 325 1 tab PO BID PRN pain 10 days #10 12/16/22 10/29/24 06/23/23 Rx mg tablet tabs lansoprazole 15 mg capsule,delayed 15 mg PO DAILY 06/24/23 10/29/24 06/23/23 History release lorazepam 0.5 mg tablet 0.5 mg PO DAILY PRN anxiety #1 tab 09/08/23 10/29/24 Unknown Rx CPAP #1 ea 09/15/23 10/29/24 Unknown Rx hydrocodone 5 mg-acetaminophen 325 1 tab PO Q6H PRN pain #20 tabs 12/26/23 10/29/24 Unknown Rx mg tablet oxycodone-acetaminophen 7.5 mg-325 1 tab PO Q4H PRN cancer pain 1 day 01/23/24 10/29/24 Unknown Rx mg tablet (Percocet) #1 tab hydrocodone 5 mg-acetaminophen 325 1 tab PO BID Pain 5 days #10 tabs 02/13/24 10/29/24 Unknown Rx mg tablet azithromycin 250 mg tablet mg 02/15/24 10/29/24 Unknown History (Zithromax Z-Lg) dexamethasone 2 mg tablet 2 mg PO DIRECTED 02/15/24 10/29/24 Unknown History aspirin 81 mg chewable tablet 81 mg PO DAILY #20 tabs 03/01/24 10/29/24 Unknown Rx lisinopril 10 mg tablet See Rx Instructions PO DAILY 30 03/01/24 10/29/24 Unknown Rx days #30 tabs clonazepam 0.5 mg tablet 0.25 mg (1/2 x 0.5 mg) PO BID #1 03/12/24 10/29/24 Unknown Rx tab hydrocodone bitartrate 10 mg 10 mg PO Q12H 5 days #10 ea 03/12/24 10/29/24 Unknown Rx capsule, oral only, extended rel 12 hr hydrocodone 2.5 mg-acetaminophen 1 tab PO DAILY #1 tab 07/04/24 10/29/24 Unknown Rx 325 mg tablet hydrocodone bitartrate 10 mg 10 mg PO Q12H 5 days #10 ea 09/17/24 10/29/24 Unknown Rx capsule, oral only, extended rel 12 hr hydrocodone bitartrate 10 mg 10 mg PO Q12H 5 days #10 ea 09/17/24 10/29/24 Unknown Rx capsule, oral only, extended rel 12 hr pseudoephedrine HCl 30 mg capsule 30 mg PO Q6H #30 ea 10/17/24 10/29/24 Unknown Rx (abuse-resistant) (Nasal Decongestant (pseudoephedrine)) carvedilol 12.5 mg tablet 12.5 mg PO BID #1 tab 10/18/24 10/29/24 Unknown Rx Allergies Allergy/AdvReac Type Severity Reaction Status Date / Time ciprofloxacin Allergy Severe ALGY-Anaphy Verified 01/12/24 13:12 laxis sulfamethoxazole Allergy Severe anaphylaxis Verified 01/12/24 13:12 cephalexin (From Keflex) Allergy Unknown Unknown Verified 01/12/24 13:12 lisinopril AdvReac Mild ADR-Cough Verified 01/12/24 13:12 PFSH Acute PFSH: Medical History (Updated 10/29/24 @ 08:00 by Chas Riley MD) Type 2 diabetes mellitus, with long-term current use of insulin Appendicitis Wound of left ankle Diabetes Asymptomatic microscopic hematuria Alzheimer's disease with early onset Migraine STANISLAW (iron deficiency anemia) 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 Father No problems noted. Other Alzheimer's dementia Autism Denies family history of Breast cancer Social History (Updated 01/12/24 @ 13:29 by Ekaterina Dobbins LPN) Smoking and tobacco/nicotine status: never used tobacco/nicotine Second hand smoke exposure: No Alcohol intake: former Year of sobriety/quit date alcohol: 2021 Substance/Drug Use: never Adopted: No Caregiver/support person: No Lives independently: Yes Household members: spouse Housing: House Marital status: Marital status details: rough Number of children: 8 Number of grandchildren: 53 Highest education level completed: High School Graduate Education level details: [email or web address] school service: Yes status: Retired branch: [employer] Assignments: Deployed number of deployments: 1 Known or Potential Exposure: None Current occupational status: retired Current occupational exposures/hazards: Yes Pets and animals: Yes Pets & animals: dog(s) and turtle(s) Leisure activites: exercise and hunting Sexually active: Yes How many partners: 20 Are you practicing safe sex: Yes Do you think of yourself as: Straight/Heterosexual Current gender identity: Male Maye/Zoroastrianism: Mormon Special maye needs: Yes Details: Jehovahs Witness Agree to transfusion: No A&P PDMP PDMP Reviewed: Not Reviewed Coding Level of Care Code Acute Code for [facility] Fwd
== END 2024-11-14 23:59 | disposition home or self-care (01) ==
LOC: ONCMED 04:57
PROVIDERS: PCP Family Medicine; Visit Provider Hospitalist
DX: Z53.9 Procedure and treatment not carried out, unspecified reason (principal)
CPT/HCPCS: 70450; 70491; 73600; 93306